=== PATIENT | female | born 1945 | race Caucasian/White ===

== ENCOUNTER 2016-04-23 13:27 | Emergency (ER) | payer MEDICARE ==
[~2016-04-23] VITALS: Ht 157.5 cm; Wt 63.0 kg
[~2016-04-23 13:27] MED LIST: CIPR500T4 PO; DILA8TAB4 PO; ESZO2 PO; NITR0.4S SL; OMEP20TA39 PO; PRED5 PO; ZOFR4TAB3 SL
[2016-04-23 13:42] VITALS: BP 156/96; PULSE 81; RESP 16; TEMP 97.9; O2SAT 98
[2016-04-23] MEDS ORDERED: ALPR0.25 PO (14:20)
[2016-04-23] MEDS ORDERED: HYDR4TAB PO (14:21)
[2016-04-23] MEDS ORDERED: NITR0.4S SL (14:21)
[2016-04-23] MEDS ORDERED: ZOFR4TAB PO (14:22)
[2016-04-23] MEDS ORDERED: PRED1 PO (14:22)
[2016-04-23] MEDS ORDERED: PRED5TAB PO (14:23)
[2016-04-23] MEDS ORDERED: PRIL20CA9 PO (14:23)
[2016-04-23] MEDS ORDERED: SODIUM CHLOR 0.9% 1000 ML INJ 1,000 ML IV SCH (14:28)
[2016-04-23] MEDS ORDERED: HYDROmorphone HCL PF 2 MG/ML VIAL IVS ONE (14:30)
[2016-04-23] MEDS ORDERED: SODIUM CHLORIDE 0.9% FLUSH 5 ML FLUSH IVF PRN (14:30)
[2016-04-23] MEDS ORDERED: ONDANSETRON HCL 4 MG/2 ML VIAL IVP ONE (14:30)
--- NOTE | 2016-04-23 14:42 | PD ---
HPI Chief Complaint: GI Complaint Time Seen by Provider: 14:20 Travel History International Travel<30 days: No Contact w/Intl Traveler<30days: No Traveled to known affect area: No History of Present Illness HPI This is a 70-year-old female who presents to the emergency department with left upper quadrant abdominal pain, present for 6 days, constant, severe, associated with nausea. She denies any associated fevers or chills. She denies any diarrhea. She says she's had pancreatitis in the past and this feels similar. She says she's been very stressed out lately because her cat was in the hospital with pancreatitis and yesterday. PFSH Past Medical History Arthritis: Yes (OSTEOARTHRITIS) Anxiety: Yes Cardiac Catheterization: No Diminished Hearing: No Diverticulitis: Yes Fibromyalgia: Yes Gastrointestinal Disorders: Yes (COLON MOTILITY DISEASE; EROSION ESOPHAGUS) GERD: Yes Genitourinary: Yes (NEPHROLITHIASIS) Hiatal Hernia: Yes Hypertension: No Insomnia: Yes Kidney Stones: Yes (RIGHT SIDE) Neurologic: Yes (POLYMYALGIA RHEUMATICA) Psychiatric: Yes Immunizations Current: Yes Tetanus Vaccination: Unknown Influenza Vaccination: Yes Menopausal: Yes Tubal Ligation: Yes Past Surgical History Abdominal Surgery: Yes (HERNIA REPAIR) Appendectomy: Yes Cardiac Surgery: No Coronary Artery Bypass Graft: No Gynecologic Surgery: Yes Hysterectomy: Yes Neurologic Surgery: Yes (T11/12 NERVE L1 NERVE) Oral Surgery: Yes (TMJ) Tonsillectomy: Yes Tympanostomy Tube: Yes Other Surgery: Yes Social History Alcohol Use: No Tobacco Use: No ( A TEEN) Substance Use: No Allergies-Medications (Allergen,Severity, Reaction): Coded Allergies: Ambien (Verified Allergy, Severe, Hallucinations, 04/23/16) Contrast Media (Verified Allergy, Severe, SWELLS UP AND RASH, 04/23/16) Fentanyl (Verified Allergy, Severe, Hypotension, 04/23/16) Iodine (Verified Allergy, Severe, Rash, 04/23/16) Macrodantin (Verified Allergy, Severe, Hives, 04/23/16) Rocephin (Verified Allergy, Severe, Rash, 04/23/16) Savella (Verified Allergy, Severe, Rash, 04/23/16) *MDRO Multi-Drug Resistant Organism (Verified Adverse Reaction, Unknown, ) ESBL+E.Coli urine 04/2015 Reported Meds & Prescriptions Reported Meds & Active Scripts Active Reported Prilosec (Omeprazole) 20 Mg Cap 20 Mg PO DAILY Prednisone 5 Mg Tab 5 Mg PO DAILY Prednisone 1 Mg Tab 1 Mg PO DAILY Zofran (Ondansetron HCl) 4 Mg Tab 4 Mg PO Q12HR PRN Nitrostat SL (Nitroglycerin) 0.4 Mg Subl 0.4 Mg SL DIRECTED PRN 1 tablet under the tongue as needed for chest pain. Repeat every 5 minutes for a total of 3 DOSES or call 911 if NO relief. Hydromorphone (Hydromorphone HCl) 4 Mg Tab 4 Mg PO Q6H PRN Alprazolam 0.25 Mg Tab 0.25 Mg PO Q4H PRN Review of Systems Except as stated in HPI: all other systems reviewed are Neg Physical Exam Narrative GENERAL:Well appearing, no acute distress SKIN: Warm and dry. HEAD: Atraumatic. Normocephalic. EYES: Pupils equal and round. No injection or drainage. ENT: Moist mucous membranes NECK: Trachea midline. CARDIOVASCULAR: Regular rate and rhythm. No murmur appreciated. RESPIRATORY: Clear to auscultation. Breath sounds equal bilaterally. GASTROINTESTINAL: Abdomen soft, tender to palpation in the left upper quadrant with no rebound or guarding. MUSCULOSKELETAL: No obvious deformities. NEUROLOGICAL: Awake and alert. No obvious cranial nerve deficits. Moving all extremities. PSYCHIATRIC: Appropriate mood and affect; insight and judgment normal. Data Data Last Documented VS Vital Signs Date Time Temp Pulse Resp B/P Pulse Ox O2 Delivery O2 Flow Rate FiO2 04/23/16 14:14 16 04/23/16 13:42 97.9 81 156/96 98 Orders Complete Blood Count With Diff (04/23/16 14:28) Comprehensive Metabolic Panel (04/23/16 14:28) Lipase (04/23/16 14:28) Urinalysis - C+S If Indicated (04/23/16 14:28) Iv Access Insert/Monitor (04/23/16 14:28) Ecg Monitoring (04/23/16 14:28) Oximetry (04/23/16 14:28) Hydromorphone Pf Inj (Dilaudid Pf Inj) (04/23/16 14:30) Ondansetron Inj (Zofran Inj) (04/23/16 14:30) Sodium Chlor 0.9% 1000 Ml Inj (Ns 1000 M (04/23/16 14:28) Sodium Chloride 0.9% Flush (Ns Flush) (04/23/16 14:30) Urine Culture (04/23/16 14:40) Labs Laboratory Tests Test 04/23/16 04/23/16 14:40 15:05 Urine Collection Type CLEAN CATCH Urine Color YELLOW Urine Turbidity SLIGHTY CLOUDY Urine pH 6.5 Urine Specific [place] 1.015 Urine Protein NEG mg/dL Urine Glucose (UA) NEG mg/dL Urine Ketones NEG mg/dL Urine Occult Blood SMALL Urine Nitrite NEG Urine Bilirubin NEG Urine Leukocyte Esterase TRACE Urine RBC 0-3 /hpf Urine WBC 3-5 /hpf Urine Bacteria MANY /hpf Microscopic Urinalysis Comment CULTURE INDICATED White Blood Count 7.6 TH/MM3 Red Blood Count 4.75 MIL/MM3 Hemoglobin 13.3 GM/DL Hematocrit 40.0 % Mean Corpuscular Volume 84.2 FL Mean Corpuscular Hemoglobin 28.0 PG Mean Corpuscular Hemoglobin 33.3 % Concent Red Cell Distribution Width 14.1 % Platelet Count 268 TH/MM3 Mean Platelet Volume 7.5 FL Neutrophils (%) (Auto) 73.8 % Lymphocytes (%) (Auto) 19.3 % Monocytes (%) (Auto) 4.9 % Eosinophils (%) (Auto) 1.4 % Basophils (%) (Auto) 0.6 % Neutrophils # (Auto) 5.6 TH/MM3 Lymphocytes # (Auto) 1.5 TH/MM3 Monocytes # (Auto) 0.4 TH/MM3 Eosinophils # (Auto) 0.1 TH/MM3 Basophils # (Auto) 0.0 TH/MM3 CBC Comment DIFF FINAL Differential Comment Sodium Level 145 MEQ/L Potassium Level 3.6 MEQ/L Chloride Level 108 MEQ/L Carbon Dioxide Level 30.5 MEQ/L Anion Gap 7 MEQ/L Blood Urea Nitrogen 15 MG/DL Creatinine 0.81 MG/DL Estimat Glomerular Filtration 70 ML/MIN Rate Random Glucose 83 MG/DL Calcium Level 8.4 MG/DL Total Bilirubin 0.5 MG/DL Aspartate Amino Transf 15 U/L (AST/SGOT) Alanine Aminotransferase 30 U/L (ALT/SGPT) Alkaline Phosphatase 74 U/L Total Protein 6.9 GM/DL Albumin 3.5 GM/DL Lipase 103 U/L [facility] Medical Decision Making Medical Screen Exam Complete: Yes Emergency Medical Condition: Yes Interpretation(s) No leukocytosis Electrolytes are reassuring Lipase is normal Urinalysis: Many bacteria Differential Diagnosis Pancreatitis, cholelithiasis, cholecystitis, peptic ulcer disease, gastritis, urinary tract infection, stress Narrative Course This is a 70-year-old female who presents to the emergency department with left upper quadrant abdominal pain. She says she's had pancreatitis in the past. Much of the conversation I had with her aunt deals with the fact that her cat was in the intensive care unit over the past several days with pancreatitis and ultimately ended up dying. I think she is very depressed and she is grieving her cat. She was placed on a monitor and an IV was established. Labs are obtained which were all reassuring. She does have some bacteria in her urine which may suggest urinary tract infection. She is very well-appearing. I don' t think any imaging is warranted. She feels much better after pain control. I think she can be discharged home. Diagnosis Primary Impression: Adjustment reaction Qualified Code: F43.21 - Adjustment disorder with depressed mood Additional Impression: Urinary tract infection Qualified Code: N30.00 - Acute cystitis without hematuria Patient Instructions: General Instructions Additional Instructions: If you develop severe or worsening abdominal pain, fever>100.4, persistent vomiting or inability to eat or drink return to the emergency department immediately. Follow up with your primary care physician in 1-2 days for a check-up. Med/Other Pt SpecificInfo: Prescription(s) given, No Change to Meds Scripts Sulfamethoxazole-Trimethoprim (Bactrim DS)800-160 Mg Tab1 Tab PO BID #6 TAB Prov:Daksha Rivera MD 04/23/16 Disposition: DISCHARGE HOME Condition: Stable Daksha Rivera MD Apr 23, 2016 14:42
[2016-04-23 14:48] LABS: BLOOD, URINE SMALL (NEG); GLUCOSE,URINE NEG (NEG); KETONE, URINE NEG (NEG); NITRITE,URINE NEG (NEG); PH, URINE 6.5 (5.0-8.5)
[2016-04-23 14:57] LABS: METHOD OF COLLECTION CLEAN CATCH; URINE COLOR YELLOW (YELLW/STRAW)
[2016-04-23 14:58] LABS: BACTERIA, URINE MANY /hpf; COMMENT (UR) CULTURE INDICATED; CULTURE IF INDICATED CULTURE INDICATED; RBC, URINE 0-3 /hpf (0-3)
[2016-04-23 15:00] VITALS: BP 129/69; PULSE 80; RESP 16; O2SAT 100
[2016-04-23 15:12] LABS: AUTOMATED NEUTROPHIL # 5.6 TH/MM3 (1.8-7.7); BASOPHIL % 0.6 % (0.0-2.0); EOSINOPHIL # 0.1 TH/MM3 (0-0.4); EOSINOPHIL % 1.4 % (0.0-4.0); HEMO FLAGS DIFF FINAL; LYMPH % 19.3 % (9.0-44.0); LYMPHOCYTE # 1.5 TH/MM3 (1.0-4.8); MEAN CELL VOLUME 84.2 FL (80.0-100.0); MEAN CORPUSCULAR HGB CONC 33.3 % (32.0-36.0); MONO % 4.9 % (0.0-8.0); NEUT % 73.8 % (16.0-70.0); PLATELET COUNT 268 TH/MM3 (150-450); RED BLOOD COUNT 4.75 MIL/MM3 (4.00-5.30); RED CELL DISTRIBUTION WIDTH 14.1 % (11.6-17.2); WHITE BLOOD COUNT 7.6 TH/MM3 (4.0-11.0)
[2016-04-23 15:19] LABS: CHLORIDE 108 MEQ/L (98-107); POTASSIUM 3.6 MEQ/L (3.5-5.1); SODIUM (NA) 145 MEQ/L (136-145)
[2016-04-23 15:23] LABS: ANION GAP 7 MEQ/L (5-15); BICARBONATE 30.5 MEQ/L (21.0-32.0); BLOOD UREA NITROGEN 15 MG/DL (7-18)
[2016-04-23 15:25] LABS: ALT (GPT) 30 U/L (10-53); AST (GOT) 15 U/L (15-37); GLOMERULAR FILTRATION RATE 70 ML/MIN (>89)
[2016-04-23 15:27] LABS: TOTAL BILIRUBIN ADULT 0.5 MG/DL (0.2-1.0)
[2016-04-23 15:28] LABS: ALKALINE PHOSPHATASE 74 U/L (45-117)
[2016-04-23] MEDS ORDERED: BACT800T5 PO (15:34)
[2016-04-23 16:13] VITALS: BP 129/68; PULSE 80; O2SAT 100
== END 2016-04-23 17:06 | disposition home or self-care (01) ==
LOC: PHED 13:27
DX: F43.21 Adjustment disorder with depressed mood (principal); N39.0 Urinary tract infection, site not specified; B96.89 Other specified bacterial agents as the cause of diseases classified elsewhere; R11.0 Nausea
CPT/HCPCS: 80053; 81001; 83690; 85025; 87077; 87086; 87186; 96361; 96374; 96375; 99284; J1170; J2405; J7030

== ENCOUNTER 2017-12-16 16:51 | Observation (INO) ==
[2017-12-16] MEDS ORDERED: Morphine Sulfate Inj 2 MG/ML Vial IV.PUSH ONE ×2 (17:20→18:14)
--- NOTE | 2017-12-16 17:27 | ED ---
HPI General Chief complaint: Nausea/Vomiting/Diarrhea Stated complaint: n/v/d Time Seen by Provider: 12/16/17 17:06 History of Present Illness HPI narrative: Patient is 72-year-old female with h/o HTN, Diverticulitis, presented for severe epigastric, left upper quadrant abdominal pain radiating to left lower quadrant for 3 days. Patient was evaluated by here primary physician on Thursday, recommended to come to emergency room for relation of diverticulitis. Patient complain about nausea, vomiting and watery diarrhea a few times for the last 2-3 days. Patient is unable to tolerate p.o., feels dehydrated. Denies fever, chest pain. Related Data Home Medications Medication Instructions Recorded Confirmed Bacillus coagulans [Digestive 2 cap PO DAILY 11/11/17 12/16/17 Advantage] hydromorphone 4 mg PO Q6H PRN 11/11/17 12/16/17 linaclotide [Linzess] 290 mcg PO DAILY 11/11/17 12/16/17 ondansetron 8 mg PO BID PRN 11/11/17 12/16/17 pantoprazole 40 mg PO DAILY 11/11/17 12/16/17 prednisone 7 mg PO DAILY 11/11/17 12/16/17 lisinopril 5 mg PO DAILY 12/16/17 12/16/17 nitroglycerin 0.4 mg SUBLINGUAL Q5-15M PRN 12/16/17 12/16/17 Allergies Allergy/AdvReac Type Severity Reaction Status Date / Time ceftriaxone Allergy Severe Rash Verified 12/16/17 17:01 diatrizoate meglumine Allergy Severe SWELLS UP Verified 12/16/17 17:01 AND RASH fentanyl Allergy Severe Hypotension Verified 12/16/17 17:01 gadobenic acid Allergy Severe SWELLS UP Verified 12/16/17 17:01 AND RASH gadodiamide Allergy Severe SWELLS UP Verified 12/16/17 17:01 AND RASH gadoteridol Allergy Severe SWELLS UP Verified 12/16/17 17:01 AND RASH iodine Allergy Severe Rash Verified 12/16/17 17:01 iodixanol Allergy Severe SWELLS UP Verified 12/16/17 17:01 AND RASH iohexol Allergy Severe SWELLS UP Verified 12/16/17 17:01 AND RASH milnacipran Allergy Severe Rash Verified 12/16/17 17:01 nitrofurantoin Allergy Severe Hives Verified 12/16/17 17:01 potassium iodide Allergy Severe Rash Verified 12/16/17 17:01 povidone-iodine Allergy Severe Rash Verified 12/16/17 17:01 sodium iodide Allergy Severe Rash Verified 12/16/17 17:01 sodium iodide Allergy Severe Rash Verified 12/16/17 17:01 zolpidem Allergy Severe Hallucinati Verified 12/16/17 17:01 ons *MDRO Multi-Drug Resistant AdvReac Unknown unknown Uncoded 11/13/17 11:15 Organism Review of Systems ROS: all other systems reviewed are negative Gastrointestinal Reports abdominal pain PMFSH Family History Family History Other Family history non-contributory Social History Social History Substance History: No History of Abuse Second Hand Smoke Exposure: No Smoking Status: Never smoker How Often Do You Have a Drink Containing Alcohol: Never Recent Travel in [facility] within the Last 8 Weeks: No Recent Out of Country Travel within the Last 8 Weeks: No Exam Narrative Exam Narrative: GENERAL: 72-year-old female in pain distress. SKIN: Focused skin assessment warm/dry. HEAD: Atraumatic. Normocephalic. EYES: Pupils equal and round. No scleral icterus. No injection or drainage. ENT: No nasal bleeding or discharge. Mucous membranes pink and moist. NECK: Trachea midline. No JVD. CARDIOVASCULAR: Regular rate and rhythm. No murmur appreciated. RESPIRATORY: No accessory muscle use. Clear to auscultation. Breath sounds equal bilaterally. GASTROINTESTINAL: Abdomen soft, significantly tender in left upper quadrant and left lower quadrant abdomen, nondistended. Hepatic and splenic margins not palpable. MUSCULOSKELETAL: No obvious deformities. No clubbing. No cyanosis. No edema. NEUROLOGICAL: Awake and alert. No obvious cranial nerve deficits. Motor grossly within normal limits. Normal speech. PSYCHIATRIC: Appropriate mood and affect; insight and judgment normal. Course Initial Documented Vital Signs Temperature 98.7 F 12/16/17 17:01 Pulse Rate 84 12/16/17 17:01 Respiratory Rate 20 12/16/17 17:01 Blood Pressure 179/84 H 12/16/17 17:01 Pulse Oximetry 99 12/16/17 17:01 Last Documented Vital Signs Temperature 97 F L 12/18/17 00:00 Pulse Rate 87 12/18/17 00:00 Respiratory Rate 20 12/18/17 00:00 Blood Pressure 119/80 12/18/17 00:00 Pulse Oximetry 98 12/18/17 00:00 Medical Decision Making MDM Narrative Medical decision making narrative: To rule out small bowel obstruction, diverticulitis, CAT scan of the abdomen ordered, blood work and urine analysis. IV fluids, nausea medications, pain medications given. 1930: Patient is mildly dehydrated, creatinine was 1.6, potassium is 3.3. Patient feels better in the emergency room, CAT scan did not show any acute pathology. Patient still feel nauseous, unable to tolerate p.o., refused potassium tablet. She is placed on observation. Case was accepted by Dr. Gomez. Medical Screen Exam Complete: Yes Emergency Medical Condition: Yes Differential Diagnosis Differential Diagnosis: Small bowel obstruction versus diverticulitis versus OR. Lab Data Result diagrams: 12/17/17 07:50 12/17/17 15:05 Lab Results 12/16/17 12/16/17 12/16/17 Range/Units 17:33 17:33 18:45 CBC w Diff Auto diff final WBC 11.5 H (4.0-11.0) th/mm3 RBC 4.71 (4.00-5.30) mil/mm3 Hgb 13.8 (11.6-15.3) gm/dL Hct 41.3 (35.0-46.0) % MCV 87.5 (80.0-100.0) fL MCH 29.3 (27.0-34.0) pg MCHC 33.5 (32.0-36.0) % RDW 13.5 (11.6-17.2) % Plt Count 267 (150-450) th/mm3 MPV 8.8 (7.0-11.0) fL Neut % (Auto) 74.6 H (16.0-70.0) % Lymph % (Auto) 14.3 (9.0-44.0) % [place] % (Auto) 5.6 (0.0-8.0) % Eos % (Auto) 2.2 (0.0-4.0) % Baso % (Auto) 3.3 H (0.0-2.0) % Neut # (Auto) 8.5 H (1.8-7.7) th/mm3 Lymph # (Auto) 1.7 (1.0-4.8) th/mm3 [place] # (Auto) 0.6 (0.0-0.9) th/mm3 Eos # (Auto) 0.3 (0.0-0.4) th/mm3 Baso # (Auto) 0.4 H (0.0-0.2) th/mm3 WBC Differential . Differential Comment . Sodium 142 (136-145) meq/L Potassium 3.3 L (3.5-5.1) meq/L Chloride 107 (98-107) meq/L Carbon Dioxide 22.3 (21.0-32.0) meq/L Anion Gap 13 (5-15) meq/L BUN 16 (7-18) mg/dL Creatinine 1.60 H (0.50-1.00) mg/dL Estimated GFR 32 L (>89) mL/min Random Glucose 91 (74-106) mg/dL Calcium 8.6 (8.5-10.1) mg/dL Magnesium (1.5-2.5) mg/dL Total Bilirubin 0.8 (0.2-1.0) mg/dL AST 26 (15-37) U/L ALT 20 (10-53) U/L Alkaline Phosphatase 57 (45-117) U/L Troponin I Less than 0.02 L (0.02-0.05) ng/mL Total Protein 7.2 (6.4-8.2) g/dL Albumin 3.9 (3.4-5.0) g/dL Lipase 73 (73-393) U/L Urine Color Yellow (Yellw/Straw) Urine Clarity Clear (Clear) Urine pH 6.0 (5.0-8.5) Ur Specific [place] 1.015 (1.002-1.035) Urine Protein Negative (Neg-Trace) mg/dL Urine Glucose (UA) Negative (Negative) mg/dL Urine Ketones 15 H (Negative) mg/dL Urine Occult Blood Trace (Negative) Urine Nitrate Negative (Negative) Urine Bilirubin Negative (Negative) Urine Urobilinogen 0.2 (Less than 2) mg/dL Ur Leukocyte Esterase Negative (Negative) Urine RBC 0-3 (0-3) /hpf Urine WBC 0-5 (0-5) /hpf Ur Squamous Epith Cells 0-5 (0-5) /hpf Amorphous Sediment Rare H (None) /hpf Urine Bacteria Rare H (None) /hpf Urine Mucus Rare H (Occasional) /lpf Micro UA Comment Culture not ind Ur Microscopic Review Microscopic reviewed Stl C.difficile DNA Amp (Negative) St C. diff Tox Epid 027 (Negative) 12/17/17 12/17/17 12/17/17 Range/Units 06:00 07:50 07:50 CBC w Diff Auto diff final WBC 6.7 (4.0-11.0) th/mm3 RBC 4.10 (4.00-5.30) mil/mm3 Hgb 12.3 (11.6-15.3) gm/dL Hct 35.5 (35.0-46.0) % MCV 86.7 (80.0-100.0) fL MCH 29.9 (27.0-34.0) pg MCHC 34.5 (32.0-36.0) % RDW 14.1 (11.6-17.2) % Plt Count 259 (150-450) th/mm3 MPV 8.3 (7.0-11.0) fL Neut % (Auto) 72.7 H (16.0-70.0) % Lymph % (Auto) 15.8 (9.0-44.0) % [place] % (Auto) 5.9 (0.0-8.0) % Eos % (Auto) 4.9 H (0.0-4.0) % Baso % (Auto) 0.7 (0.0-2.0) % Neut # (Auto) 4.9 (1.8-7.7) th/mm3 Lymph # (Auto) 1.1 (1.0-4.8) th/mm3 [place] # (Auto) 0.4 (0.0-0.9) th/mm3 Eos # (Auto) 0.3 (0.0-0.4) th/mm3 Baso # (Auto) 0.0 (0.0-0.2) th/mm3 WBC Differential . Differential Comment . Sodium 146 H (136-145) meq/L Potassium 2.8 L* (3.5-5.1) meq/L Chloride 110 H (98-107) meq/L Carbon Dioxide 27.7 (21.0-32.0) meq/L Anion Gap 8 (5-15) meq/L BUN 11 (7-18) mg/dL Creatinine 1.00 (0.50-1.00) mg/dL Estimated GFR 54 L (>89) mL/min Random Glucose 82 (74-106) mg/dL Calcium 7.6 L D (8.5-10.1) mg/dL Magnesium (1.5-2.5) mg/dL Total Bilirubin (0.2-1.0) mg/dL AST (15-37) U/L ALT (10-53) U/L Alkaline Phosphatase (45-117) U/L Troponin I (0.02-0.05) ng/mL Total Protein (6.4-8.2) g/dL Albumin (3.4-5.0) g/dL Lipase (73-393) U/L Urine Color (Yellw/Straw) Urine Clarity (Clear) Urine pH (5.0-8.5) Ur Specific [place] (1.002-1.035) Urine Protein (Neg-Trace) mg/dL Urine Glucose (UA) (Negative) mg/dL Urine Ketones (Negative) mg/dL Urine Occult Blood (Negative) Urine Nitrate (Negative) Urine Bilirubin (Negative) Urine Urobilinogen (Less than 2) mg/dL Ur Leukocyte Esterase (Negative) Urine RBC (0-3) /hpf Urine WBC (0-5) /hpf Ur Squamous Epith Cells (0-5) /hpf Amorphous Sediment (None) /hpf Urine Bacteria (None) /hpf Urine Mucus (Occasional) /lpf Micro UA Comment Ur Microscopic Review Stl C.difficile DNA Amp Positive H (Negative) St C. diff Tox Epid 027 Negative (Negative) 12/17/17 12/17/17 Range/Units 07:50 15:05 CBC w Diff WBC (4.0-11.0) th/mm3 RBC (4.00-5.30) mil/mm3 Hgb (11.6-15.3) gm/dL Hct (35.0-46.0) % MCV (80.0-100.0) fL MCH (27.0-34.0) pg MCHC (32.0-36.0) % RDW (11.6-17.2) % Plt Count (150-450) th/mm3 MPV (7.0-11.0) fL Neut % (Auto) (16.0-70.0) % Lymph % (Auto) (9.0-44.0) % [place] % (Auto) (0.0-8.0) % Eos % (Auto) (0.0-4.0) % Baso % (Auto) (0.0-2.0) % Neut # (Auto) (1.8-7.7) th/mm3 Lymph # (Auto) (1.0-4.8) th/mm3 [place] # (Auto) (0.0-0.9) th/mm3 Eos # (Auto) (0.0-0.4) th/mm3 Baso # (Auto) (0.0-0.2) th/mm3 WBC Differential Differential Comment Sodium (136-145) meq/L Potassium 2.8 L* (3.5-5.1) meq/L Chloride (98-107) meq/L Carbon Dioxide (21.0-32.0) meq/L Anion Gap (5-15) meq/L BUN (7-18) mg/dL Creatinine (0.50-1.00) mg/dL Estimated GFR (>89) mL/min Random Glucose (74-106) mg/dL Calcium (8.5-10.1) mg/dL Magnesium 1.8 (1.5-2.5) mg/dL Total Bilirubin (0.2-1.0) mg/dL AST (15-37) U/L ALT (10-53) U/L Alkaline Phosphatase (45-117) U/L Troponin I (0.02-0.05) ng/mL Total Protein (6.4-8.2) g/dL Albumin (3.4-5.0) g/dL Lipase (73-393) U/L Urine Color (Yellw/Straw) Urine Clarity (Clear) Urine pH (5.0-8.5) Ur Specific [place] (1.002-1.035) Urine Protein (Neg-Trace) mg/dL Urine Glucose (UA) (Negative) mg/dL Urine Ketones (Negative) mg/dL Urine Occult Blood (Negative) Urine Nitrate (Negative) Urine Bilirubin (Negative) Urine Urobilinogen (Less than 2) mg/dL Ur Leukocyte Esterase (Negative) Urine RBC (0-3) /hpf Urine WBC (0-5) /hpf Ur Squamous Epith Cells (0-5) /hpf Amorphous Sediment (None) /hpf Urine Bacteria (None) /hpf Urine Mucus (Occasional) /lpf Micro UA Comment Ur Microscopic Review Stl C.difficile DNA Amp (Negative) St C. diff Tox Epid 027 (Negative) Imaging Data Radiologist's impression: Abdomen/Pelvis CT 12/16/17 17:17 CONCLUSION: 1. [id number] diverticulosis with no inflammatory change or evidence of obstruction. 2. Bilateral nonobstructing renal calculi with multiple left parapelvic cysts again noted. 3. Probable small gallstones with no gallbladder wall thickening or inflammatory change. Discharge Plan Discharge Disposition Patient Disposition: 30 Still Patient Discharge Condition Condition: Fair Discharge Details Diagnosis: Renal insufficiency, Nausea & vomiting, Gastroenteritis, Abdominal pain Physicians Team ED Provider: Nolan Blanco Primary Care Provider: Corky Mendiola Attending Provider: Rosibel Gomez Status ED Status: Left Department Discharge Information Discharge Date/Time: 12/16/17 20:40
[2017-12-16] MEDS ORDERED: Sod Chloride 0.9% Inj 1,000 ML IV.SIG SCH (17:30)
[2017-12-16 17:42] LABS: Baso # (Auto) 0.4 th/mm3 (0.0-0.2); Baso % (Auto) 3.3 % (0.0-2.0); Eos # (Auto) 0.3 th/mm3 (0.0-0.4); Eos % (Auto) 2.2 % (0.0-4.0); Hematocrit 41.3 % (35.0-46.0); Hemoglobin 13.8 gm/dL (11.6-15.3); Lymph # (Auto) 1.7 th/mm3 (1.0-4.8); Lymph % (Auto) 14.3 % (9.0-44.0); Mean Corpuscular HGB Conc 33.5 % (32.0-36.0); Mean Corpuscular Hemoglobin 29.3 pg (27.0-34.0); Mean Corpuscular Volume 87.5 fL (80.0-100.0); Mean Platelet Volume 8.8 fL (7.0-11.0); Mono # (Auto) 0.6 th/mm3 (0.0-0.9); Mono % (Auto) 5.6 % (0.0-8.0); Neut # (Auto) 8.5 th/mm3 (1.8-7.7); Neut % (Auto) 74.6 % (16.0-70.0); Platelet Count 267 th/mm3 (150-450); Red Blood Count 4.71 mil/mm3 (4.00-5.30); Red Cell Distribution Width 13.5 % (11.6-17.2); White Blood Count 11.5 th/mm3 (4.0-11.0)
[2017-12-16 17:50] LABS: Chloride 107 meq/L (98-107); Sodium 142 meq/L (136-145)
[2017-12-16 17:53] LABS: Albumin 3.9 g/dL (3.4-5.0); Calcium 8.6 mg/dL (8.5-10.1); Carbon Dioxide 22.3 meq/L (21.0-32.0); Glucose,Random 91 mg/dL (74-106); Lipase 73 U/L (73-393)
[2017-12-16 17:54] LABS: Blood Urea Nitrogen 16 mg/dL (7-18)
[2017-12-16 17:56] LABS: Alanine Aminotransferase 20 U/L (10-53); Aspartate Aminotransferase 26 U/L (15-37); Glomerular Filtration Rate 32 mL/min (>89)
[2017-12-16 17:58] LABS: Total Protein 7.2 g/dL (6.4-8.2)
[2017-12-16 17:59] LABS: Alkaline Phosphatase 57 U/L (45-117)
[2017-12-16 18:01] LABS: Anion Gap 13 meq/L (5-15); Potassium 3.3 meq/L (3.5-5.1)
--- NOTE | 2017-12-16 18:13 | CT ---
EXAM DATE: 12/16/2017 6:01 PM EST AGE/SEX: 72 years / Female INDICATIONS: Abdominal pain. Nausea, vomiting and diarrhea. CLINICAL DATA: This is the patient's initial encounter. Patient reports that signs and symptoms have been present for 1 day and indicates a pain score of 10/10. MEDICAL/SURGICAL HISTORY: Gastroesophageal reflux disease. Hypertension. Ulcers. Appendectomy . right rib removed. (12) RADIATION DOSE: 10.99 CTDI (mGy) COMPARISON: POI, CT ABDOMEN AND PELVIS W/O CONTRAST, 06/16/2017. . TECHNIQUE: Multiple contiguous axial images were obtained through the abdomen. Images were obtained using multiple row detector helical technique. Using automated exposure control and adjustment of the mA and/or kV according to patient size, radiation dose was kept as low as reasonably achievable to o btain optimal diagnostic quality images. DICOM format image data is available electronically for rev iew and comparison. FINDINGS: Lower Lungs: The visualized lower lungs are clear. Liver: The liver has a homogeneous density without space-occupying lesion. There is no dilation of th e biliary tree. The gallbladder is normal in size and shape with several small subtle high density st ructures which may represent small gallstones. There is no wall thickening or inflammatory change. Spleen: Homogeneous density without enlargement. Pancreas: Unremarkable without mass or calcification. Kidneys: Normal in size and shape. No evidence of a solid mass or hydronephrosis. There are multiple left parapelvic cysts again noted. There are bilateral small nonobstructing renal calculi. There are 2 on the right measuring up to 3 mm in size and one on the left measuring 3 to 4 mm in size. There a re no ureteral calculi. Adrenal Glands: Unremarkable. Aorta: The aorta and proximal iliac vessels are grossly unremarkable without aneurysmal dilation. Bowel/Mesentery: No oral contrast was given limiting the sensitivity. There are multiple diverticuli greatest in the sigmoid colon with no focal wall thickening or inflammatory change. There is no free air or fluid. Abdominal Wall: Intact. Retroperitoneum: No evidence of adenopathy in the retrocrural, para-aortic, or deep pelvic regions. Bladder: Contours are smooth. Reproductive Organs: No abnormal masses or calcifications seen. Inguinal: The inguinal region is unremarkable without evidence of adenopathy. Bony Structures: Unremarkable. CONCLUSION: 1. [id number] diverticulosis with no inflammatory change or evidence of obstruction. 2. Bilateral nonobstructing renal calculi with multiple left parapelvic cysts again noted. 3. Probable small gallstones with no gallbladder wall thickening or inflammatory change. Electronically signed by: Aj Hall MD 12/16/2017 6:11 PM EST
[2017-12-16 19:00] LABS: Bilirubin,Urine Negative (Negative); Clarity,Urine Clear (Clear); Color,Urine Yellow (Yellw/Straw); Glucose,Urine (UA) Negative (Negative); Leukocyte Esterase,Urine Negative (Negative); Nitrite,Urine Negative (Negative); Specific Gravity,Urine 1.015 (1.002-1.035); Urobilinogen,Urine 0.2 mg/dL (Less than 2)
[2017-12-16 19:05] LABS: RBC,Urine 0-3 /hpf (0-3); Squamous Epithelial Cell,Urine 0-5 /hpf (0-5); WBC,Urine 0-5 /hpf (0-5)
[2017-12-16 19:06] LABS: Amorphous Sediment,Urine Rare /hpf; Bacteria,Urine Rare /hpf; Mucus,Urine Rare /lpf (Occasional)
[2017-12-16] MEDS ORDERED: Acetaminophen 325 MG Tablet PO PRN (19:21)
[2017-12-16] MEDS ORDERED: Bisacodyl 10 MG Supp RECTAL PRN (19:21)
[2017-12-16] MEDS ORDERED: HYDROmorphone PF Inj 0.5 MG/0.5 ML Syringe IV.PUSH PRN (21:29)
[2017-12-16] MEDS: HYDROmorphone PF Inj 1 MG/ML Ampul IV.PUSH PRN (22:10)
[2017-12-16] MEDS: Sod Chloride 0.9% Inj 1,000 ML IV.CONT SCH (22:11)
[2017-12-17] MEDS: HYDROmorphone PF Inj 1 MG/ML Ampul IV.PUSH PRN ×2 (04:21→09:32)
[2017-12-17] MEDS: Sod Chloride 0.9% Inj 1,000 ML IV.CONT SCH (05:56)
[2017-12-17 08:03] LABS: Baso % (Auto) 0.7 % (0.0-2.0); Eos # (Auto) 0.3 th/mm3 (0.0-0.4); Eos % (Auto) 4.9 % (0.0-4.0); Hematocrit 35.5 % (35.0-46.0); Hemoglobin 12.3 gm/dL (11.6-15.3); Lymph # (Auto) 1.1 th/mm3 (1.0-4.8); Lymph % (Auto) 15.8 % (9.0-44.0); Mean Corpuscular HGB Conc 34.5 % (32.0-36.0); Mean Corpuscular Hemoglobin 29.9 pg (27.0-34.0); Mean Corpuscular Volume 86.7 fL (80.0-100.0); Mean Platelet Volume 8.3 fL (7.0-11.0); Mono # (Auto) 0.4 th/mm3 (0.0-0.9); Mono % (Auto) 5.9 % (0.0-8.0); Neut # (Auto) 4.9 th/mm3 (1.8-7.7); Neut % (Auto) 72.7 % (16.0-70.0); Platelet Count 259 th/mm3 (150-450); Red Cell Distribution Width 14.1 % (11.6-17.2); White Blood Count 6.7 th/mm3 (4.0-11.0)
[2017-12-17 08:47] LABS: Calcium 7.6 mg/dL (8.5-10.1); Carbon Dioxide 27.7 meq/L (21.0-32.0)
--- NOTE | 2017-12-17 08:55 | P.HP ---
History of Present Illness Primary Care Physician: Corky Mendiola MD Chief Complaint: Abdominal pain, n/v and diarrhea History of Present Illness: This is a 72-year-old female patient with a known medical history of hypertension, diverticulitis and chronic back pain who presented to the ED with complaints of abdominal pain, nausea, vomiting and diarrhea times 3 days. Patient states that her abdominal pain started 3 days ago in her left upper quadrant and radiated to her left lower quadrant, she admits to poor appetite for the past few days with little to drink or eat without nausea and vomiting. She denies any recent fevers, chills, headache, cough, dysuria. She does state that she has been following with Dr. Leo 2, gastroenterology, for esophageal strictures and has underwent multiple esophageal dilations in the past. Her last esophageal dilation was 5 months ago. She states she has trouble swallowing foods and has to keep her diet to soft and bland foods. Patient also states she has had multiple UTIs in the past, followed previously with Dr. Bonilla, infectious disease and has had multiple IV antibiotic infusions. She has not seen Dr. Bonilla for many months now. At the present time of assessment patient states she feels much improved overnight, her nausea is more improved, she denies any vomiting overnight. Diarrhea slowed up. Electrolytes are still abnormal this morning, will continue replacement. Encourage p.o. intake. - Diagnosis (1) Renal insufficiency (2) Nausea & vomiting (3) Gastroenteritis (4) Abdominal pain Review of Systems All other systems reviewed negative except as stated in HPI PMFSH - History History Provided By: Patient - Medical History Medical History: Medical History (Last Reviewed 12/17/17 @ 11:11 by Lizzie Mitchell) Esophageal stricture Fibromyalgia GERD (gastroesophageal reflux disease) Gastric ulcer Hypertension Interstitial cystitis Osteoporosis Polymyalgia rheumatica Recurrent UTI - Surgical History Surgical History: Surgical History (Last Reviewed 12/17/17 @ 11:11 by Lizzie Mitchell) Hx of appendectomy Hx of tonsillectomy - Family History Family History: Family History (Last Updated 12/17/17 @ 11:11 by Lizzie Mitchell) Other Family history non-contributory - Social History I have reviewed the patient's Social History: Yes - Tobacco History Second Hand Smoke Exposure: No Smoking Status: Never smoker - Alcohol History How Often Do You Have a Drink Containing Alcohol: Never - Substance Use History Substance History: No History of Abuse - Travel History Recent Travel in the [place] Within the Last 8 Weeks: No Recent Travel Out of the Country Within the Last 8 Weeks: No - Immunization History Tetanus Immunization: >5 Years Medications and Allergies Active Medications: Active Medications Acetaminophen (Tylenol) 650 mg PO Q4H PRN PRN Reason: Headache, fever, pain 1-4 Al Hydroxide/Mg Hydroxide (Milk Of Magnesia Liq) 30 ml PO Q12H PRN PRN Reason: Mild Constipation Bisacodyl (Dulcolax Supp) 10 mg RECTAL DAILY PRN PRN Reason: SEVERE CONSITIPATION Hydromorphone HCl (Dilaudid Pf Inj) 0.5 mg IV.PUSH Q4H PRN PRN Reason: pain 1 to 10 Last Admin: 12/17/17 04:21 Dose: 0.5 mg Sodium Chloride (Ns Inj) 1,000 mls @ 100 mls/hr IV.CONT .Q10H MICKY Last Admin: 12/17/17 05:56 Dose: 100 mls/hr Lactulose (Lactulose Liq) 30 ml PO DAILY PRN PRN Reason: SEVERE CONSITIPATION Ondansetron HCl (Zofran Inj) 4 mg IV.PUSH Q6H PRN PRN Reason: NAUSEA OR VOMITING Last Admin: 12/17/17 05:53 Dose: 4 mg Sennosides (Senokot) 17.2 mg PO Q12H PRN PRN Reason: Moderate Constipation Sodium Chloride (Ns Flush) 2 ml IV.FLUSH PRN PRN PRN Reason: FLUSH AFTER USING IV ACCESS Allergies Allergy/AdvReac Type Severity Reaction Status Date / Time ceftriaxone Allergy Severe Rash Verified 12/16/17 17:01 diatrizoate meglumine Allergy Severe SWELLS UP Verified 12/16/17 17:01 AND RASH fentanyl Allergy Severe Hypotension Verified 12/16/17 17:01 gadobenic acid Allergy Severe SWELLS UP Verified 12/16/17 17:01 AND RASH gadodiamide Allergy Severe SWELLS UP Verified 12/16/17 17:01 AND RASH gadoteridol Allergy Severe SWELLS UP Verified 12/16/17 17:01 AND RASH iodine Allergy Severe Rash Verified 12/16/17 17:01 iodixanol Allergy Severe SWELLS UP Verified 12/16/17 17:01 AND RASH iohexol Allergy Severe SWELLS UP Verified 12/16/17 17:01 AND RASH milnacipran Allergy Severe Rash Verified 12/16/17 17:01 nitrofurantoin Allergy Severe Hives Verified 12/16/17 17:01 potassium iodide Allergy Severe Rash Verified 12/16/17 17:01 povidone-iodine Allergy Severe Rash Verified 12/16/17 17:01 sodium iodide Allergy Severe Rash Verified 12/16/17 17:01 sodium iodide Allergy Severe Rash Verified 12/16/17 17:01 zolpidem Allergy Severe Hallucinati Verified 12/16/17 17:01 ons *MDRO Multi-Drug Resistant AdvReac Unknown unknown Uncoded 11/13/17 11:15 Organism Home Medications Medication Instructions Recorded Confirmed Type Bacillus coagulans [Digestive 2 cap PO DAILY 11/11/17 12/16/17 History Advantage] hydromorphone 4 mg PO Q6H PRN 11/11/17 12/16/17 History linaclotide [Linzess] 290 mcg PO DAILY 11/11/17 12/16/17 History ondansetron 8 mg PO BID PRN 11/11/17 12/16/17 History pantoprazole 40 mg PO DAILY 11/11/17 12/16/17 History prednisone 7 mg PO DAILY 11/11/17 12/16/17 History lisinopril 5 mg PO DAILY 12/16/17 12/16/17 History nitroglycerin 0.4 mg SUBLINGUAL Q5-15M PRN 12/16/17 12/16/17 History Exam Vital signs: Vital Signs 12/16/17 17:01 12/16/17 17:35 12/16/17 18:05 Temperature 98.7 F Pulse Rate 84 75 Respiratory Rate 20 16 18 Blood Pressure 179/84 H 143/81 H Pulse Oximetry 99 95 12/16/17 18:56 12/16/17 20:28 12/16/17 20:45 Temperature 97.9 F Pulse Rate 77 77 81 Respiratory Rate 16 18 20 Blood Pressure 115/61 117/73 145/77 H Pulse Oximetry 97 100 98 12/16/17 22:33 12/17/17 00:00 12/17/17 04:00 Temperature 97.4 F L 97.9 F Pulse Rate 73 69 Respiratory Rate 20 20 20 Blood Pressure 133/67 139/68 Pulse Oximetry 99 98 12/17/17 05:09 12/17/17 05:13 Temperature 97.9 F Pulse Rate 69 Respiratory Rate 20 20 Blood Pressure 139/68 Pulse Oximetry 98 Intake & Output 12/16/17 12/17/17 12/17/17 18:59 06:59 18:59 Intake Total 1000 / 1000 1000 / 1000 Balance 1000 / 1000 1000 / 1000 Weight 60.4 kg 59.8 kg Intake: IV 1000 / 1000 1000 / 1000 NS Inj 1,000 ML @ 100 mls/hr IV 1000 / 1000 .CONT .Q10H MICKY Rx#:[id number] NS Inj 1,000 ML @ 1000 mls/hr 1000 / 1000 IV.SIG BOLUS MICKY Rx#:[id number] Oral 0 / 0 Other: # Voids 1 Weight On Admission 60.4 kg Narrative: GENERAL: Well-developed, well-nourished patient in [facility]. SKIN: Warm and dry. No rash. HEAD: Normocephalic. Atraumatic. EYES: Pupils equal and round. No scleral icterus. No injection or drainage. ENT: No nasal bleeding or discharge. Mucous membranes pink and moist. NECK: Supple. Trachea midline. CARDIOVASCULAR: Regular rate and rhythm. S1, S2 noted. No murmur appreciated. RESPIRATORY: No accessory muscle use. Clear to auscultation. Breath sounds equal bilaterally. GASTROINTESTINAL: Abdomen soft, non-tender, nondistended. Normoactive bowel sounds x4. No pain to palpation. MUSCULOSKELETAL: No obvious deformities. Extremities without clubbing, cyanosis , or edema. NEUROLOGICAL: Awake and alert. No obvious cranial nerve deficits. Motor grossly within normal limits. 5/5 muscle strength in bilateral upper and lower extremities. Normal speech. PSYCHIATRIC: Appropriate mood and affect; insight and judgment normal. Results - Labs CBC & Chem 7: 12/17/17 07:50 12/17/17 07:50 Labs: Laboratory Results - last 24 hr 12/16/17 12/16/17 12/16/17 17:33 17:33 18:45 CBC w Diff Auto diff final WBC 11.5 H RBC 4.71 Hgb 13.8 Hct 41.3 MCV 87.5 MCH 29.3 MCHC 33.5 RDW 13.5 Plt Count 267 MPV 8.8 Neut % (Auto) 74.6 H Lymph % (Auto) 14.3 [place] % (Auto) 5.6 Eos % (Auto) 2.2 Baso % (Auto) 3.3 H Neut # (Auto) 8.5 H Lymph # (Auto) 1.7 [place] # (Auto) 0.6 Eos # (Auto) 0.3 Baso # (Auto) 0.4 H WBC Differential . Differential Comment . Sodium 142 Potassium 3.3 L Chloride 107 Carbon Dioxide 22.3 Anion Gap 13 BUN 16 Creatinine 1.60 H Estimated GFR 32 L Random Glucose 91 Calcium 8.6 Total Bilirubin 0.8 AST 26 ALT 20 Alkaline Phosphatase 57 Troponin I Less than 0.02 L Total Protein 7.2 Albumin 3.9 Lipase 73 Urine Color Yellow Urine Clarity Clear Urine pH 6.0 Ur Specific [place] 1.015 Urine Protein Negative Urine Glucose (UA) Negative Urine Ketones 15 H Urine Occult Blood Trace Urine Nitrate Negative Urine Bilirubin Negative Urine Urobilinogen 0.2 Ur Leukocyte Esterase Negative Urine RBC 0-3 Urine WBC 0-5 Ur Squamous Epith Cells 0-5 Amorphous Sediment Rare H Urine Bacteria Rare H Urine Mucus Rare H Micro UA Comment Culture not ind Ur Microscopic Review Microscopic reviewed 12/17/17 07:50 CBC w Diff Auto diff final WBC 6.7 RBC 4.10 Hgb 12.3 Hct 35.5 MCV 86.7 MCH 29.9 MCHC 34.5 RDW 14.1 Plt Count 259 MPV 8.3 Neut % (Auto) 72.7 H Lymph % (Auto) 15.8 [place] % (Auto) 5.9 Eos % (Auto) 4.9 H Baso % (Auto) 0.7 Neut # (Auto) 4.9 Lymph # (Auto) 1.1 [place] # (Auto) 0.4 Eos # (Auto) 0.3 Baso # (Auto) 0.0 WBC Differential . Differential Comment . Sodium Potassium Chloride Carbon Dioxide Anion Gap BUN Creatinine Estimated GFR Random Glucose Calcium Total Bilirubin AST ALT Alkaline Phosphatase Troponin I Total Protein Albumin Lipase Urine Color Urine Clarity Urine pH Ur Specific [place] Urine Protein Urine Glucose (UA) Urine Ketones Urine Occult Blood Urine Nitrate Urine Bilirubin Urine Urobilinogen Ur Leukocyte Esterase Urine RBC Urine WBC Ur Squamous Epith Cells Amorphous Sediment Urine Bacteria Urine Mucus Micro UA Comment Ur Microscopic Review - Imaging Impressions Abdomen/Pelvis CT 12/16/17 17:17 CONCLUSION: 1. Xjic-[id number] diverticulosis with no inflammatory change or evidence of obstruction. 2. Bilateral nonobstructing renal calculi with multiple left parapelvic cysts again noted. 3. Probable small gallstones with no gallbladder wall thickening or inflammatory change. Caprini VTE Risk Assessment Caprini VTE Risk Assessment: Moderate/High Risk (score >= 2) Caprini Risk Assessment Model: Point Value = 1 Point Value = 2 Point Value = 3 Point Value = 5 Age 41-60 Minor surgery BMI > 25 kg/m2 Swollen legs Varicose veins or History of unexplained or recurrent spontaneous Oral contraceptives or hormone replacement Sepsis (< 1 month) Serious lung disease, including pneumonia (< 1 month) Abnormal pulmonary function Acute myocardial infarction Congestive heart failure (< 1 month) History of inflammatory bowel disease Medical patient at bed rest Age 61-74 Arthroscopic surgery Major open surgery (> 45 min) Laparoscopic surgery (> 45 min) Malignancy Confined to bed (> 72 hours) Immobilizing plaster cast Central venous access Age >= 75 History of VTE Family history of VTE Factor V Leiden Prothrombin [id number] Lupus anticoagulant Anticardiolipin antibodies Elevated serum homocysteine Heparin-induced thrombocytopenia Other congenital or acquired thrombophilia Stroke (< 1 month) Elective arthroplasty Hip, pelvis, or leg fracture Acute spinal cord injury (< 1 month) Prophylaxis Regimen: Total Risk Factor Score Risk Level Prophylaxis Regimen 0-1 Low Early ambulation 2 Moderate Order ONE of the following: *Sequential Compression Device (SCD) *Heparin 5000 units SQ BID 3-4 Higher Order ONE of the following medications: *Heparin 5000 units SQ TID *Enoxaparin/Lovenox 40 mg SQ daily (WT < 150 kg, CrCl > 30 mL/min) *Enoxaparin/Lovenox 30 mg SQ daily (WT < 150 kg, CrCl > 10-29 mL/min) *Enoxaparin/Lovenox 30 mg SQ BID (WT < 150 kg, CrCl > 30 mL/min) AND/OR *Sequential Compression Device (SCD) 5 or more Highest Order ONE of the following medications: *Heparin 5000 units SQ TID (Preferred with Epidurals) *Enoxaparin/Lovenox 40 mg SQ daily (WT < 150 kg, CrCl > 30 mL/min) *Enoxaparin/Lovenox 30 mg SQ daily (WT < 150 kg, CrCl > 10-29 mL/min) *Enoxaparin/Lovenox 30 mg SQ BID (WT < 150 kg, CrCl > 30 mL/min) AND *Sequential Compression Device (SCD) Assessment and Plan - Assessment (1) Renal insufficiency Code(s): N28.9 - Disorder of kidney and ureter, unspecified Status: Acute (2) Nausea & vomiting Code(s): R11.2 - Nausea with vomiting, unspecified Status: Acute (3) Gastroenteritis Code(s): K52.9 - Noninfective gastroenteritis and colitis, unspecified Status : Acute (4) Abdominal pain Code(s): R10.9 - Unspecified abdominal pain Status: Acute - Plan This is a 72-year-old female patient with Abdominal pain, nausea, vomiting and diarrhea times 3 days possible gastroenteritis -Abdominal/pelvis CT reviewed showing no acute abnormalities. -Symptoms have improved overnight. We will continue IV fluid. Encourage p.o. intake as tolerated. -Zofran as needed for nausea. -Pain control with Dilaudid IV as needed. Hypokalemia -Potassium 3.0 upon presentation, was replaced and this morning still low at 2.8. Replete as ordered. -Recheck potassium level this afternoon. Patient has some mild hyperkalemia from IV fluids, will decrease to half NS. Acute kidney injury suspect secondary to dehydration -Creatinine 1.6 on presentation, has improved to 1.0 today. Will continue IV fluids. -Monitor BMP. Leukocytosis, improved. -Patient presented with white blood cell 11,000, has improved today. Likely secondary to possible enteritis. Afebrile overnight. Continue to monitor. Chronic back pain: Will continue home prednisone. Patient is on Dilaudid at home. E- [employer] database reviewed and will continue home medications. DVT prophylaxis: SCDs. Ambulation. Discharge Planning: Await improvement of electrolytes.
[2017-12-17 09:00] LABS: Potassium 2.8 meq/L (3.5-5.1)
[2017-12-17] MEDS ORDERED: Mag Sulf 1 gm/100 ml Premix 100 ML IV.SIG ONE (09:04)
[2017-12-17] MEDS: Lisinopril 5 MG Tablet PO SCH (09:32)
[2017-12-17] MEDS ORDERED: Potassium Chlor 20 mEq Premix 20 MEQ/100 ML PIGGYBACK IV.SIG ONE (09:45)
[2017-12-17] MEDS ORDERED: KCL 20 mEq/NACL 0.45% Inj 1,000 ML IV.SIG SCH (10:00)
[2017-12-17] MEDS: KCL 20 mEq/NACL 0.45% Inj 1,000 ML IV.SIG SCH ×2 (10:07→21:28)
[2017-12-17] MEDS: Lactobacillus Acidophilus/L. Spores Tablet PO SCH (10:08)
[2017-12-17] MEDS: predniSONE 5 MG Tablet PO SCH (10:08)
[2017-12-17] MEDS: predniSONE 1 MG Tablet PO SCH (11:54)
[2017-12-17] MEDS: Potassium Chlor 20 mEq Premix 20 MEQ/100 ML PIGGYBACK IV.SIG SCH ×2 (17:05→21:28)
[2017-12-17] MEDS ORDERED: Potassium Chloride 25 MEQ Effervescent Tablet PO ONE (20:45)
[2017-12-18] MEDS: KCL 20 mEq/NACL 0.45% Inj 1,000 ML IV.SIG SCH ×2 (06:31→16:17)
[2017-12-18] MEDS: predniSONE 5 MG Tablet PO SCH (08:14)
[2017-12-18] MEDS: predniSONE 1 MG Tablet PO SCH (08:15)
[2017-12-18] MEDS: Lisinopril 5 MG Tablet PO SCH (08:15)
[2017-12-18] MEDS: Lactobacillus Acidophilus/L. Spores Tablet PO SCH (08:15)
--- NOTE | 2017-12-18 16:47 | P.PN ---
Subjective Interval history: Follow-up for nausea vomiting, diarrhea, electrolyte imbalance. Patient is currently resting in bed. However she complains of frequent diarrhea as well as nausea vomiting. No fever but chills. Physical Exam Vital signs: Vital Signs 12/17/17 20:00 12/18/17 00:00 12/18/17 08:00 Temperature 97.8 F 97 F L 98.7 F Pulse Rate 84 87 86 Respiratory Rate 20 20 16 Blood Pressure 122/83 119/80 157/110 H Pulse Oximetry 97 98 96 12/18/17 11:58 Temperature 98.3 F Pulse Rate 89 Respiratory Rate 17 Blood Pressure 151/88 H Pulse Oximetry 96 Intake & Output 12/17/17 12/18/17 12/18/17 18:59 06:59 18:59 Intake Total 1650 / 1650 2030 / 2030 1070 / 1070 Output Total 710 / 710 Balance 1650 / 1650 1320 / 1320 1070 / 1070 Weight 59.8 kg Intake: IV 1200 / 1200 1030 / 1030 1070 / 1070 NS Inj 1,000 ML @ 100 mls/hr IV 1000 / 1000 .CONT .Q10H MICKY Rx#:[id number] Potassium Chlor 20 mEq/NACL 0. 1000 / 1000 1000 / 1000 45% Inj 1,000 ML @ 100 mls/hr IV.SIG .Q10H MICKY Rx#:[id number] Magnesium Sulfate 1 gm/D5W 100 100 / 100 ml Premix 100 ML @ 100 mls/hr IV.SIG ONCE ONE Rx#:[id number] KCl 20 mEq Premix Inj 20 meq In 100 / 100 30 / 30 100 ml @ 50 mls/hr IV.SIG Q2H MICKY Rx#:[id number] Oral 450 / 450 Other 1000 / 1000 Output: Urine 650 / 650 Stool 60 / 60 Other: Other Intake Source Saline Solution Date of Last Bowel Movement 12/18/17 12/18/17 Narrative: GENERAL: Alert, oriented x3, NAD. SKIN: Warm and dry. HEAD: Normocephalic. EYES: No scleral icterus. No injection or drainage. NECK: Supple, trachea midline. No JVD or lymphadenopathy. CARDIOVASCULAR: Regular rate and rhythm without murmurs, gallops, or rubs. RESPIRATORY: Breath sounds equal bilaterally. No accessory muscle use. GASTROINTESTINAL: Abdomen soft, tender to palpation to the left side, nondistended. MUSCULOSKELETAL: No cyanosis, or edema. BACK: Nontender without obvious deformity. No CVA tenderness. Results - Labs CBC & Chem 7: 12/17/17 07:50 12/17/17 15:05 Laboratory Results - last 24 hr 12/17/17 06:00 Stool C.difficile Ag Negative Stool C.difficile Toxin Negative Microbiology 12/17/17 06:00 Stool Stool for WBCs - Final No WBC's seen - Imaging Abdomen/Pelvis CT 12/16/17 17:17 CONCLUSION: 1. [id number] diverticulosis with no inflammatory change or evidence of obstruction. 2. Bilateral nonobstructing renal calculi with multiple left parapelvic cysts again noted. 3. Probable small gallstones with no gallbladder wall thickening or inflammatory change. Assessment and Plan - Assessment (1) Renal insufficiency Code(s): N28.9 - Disorder of kidney and ureter, unspecified Status: Acute (2) Nausea & vomiting Code(s): R11.2 - Nausea with vomiting, unspecified Status: Acute (3) Gastroenteritis Code(s): K52.9 - Noninfective gastroenteritis and colitis, unspecified Status : Acute (4) Abdominal pain Code(s): R10.9 - Unspecified abdominal pain Status: Acute - Plan This is a 72-year-old female patient with a known medical history of hypertension, diverticulitis and chronic back pain who presented to the ED with complaints of abdominal pain, nausea, vomiting and diarrhea times 3 days. Patient follows up with an infectious disease doctor Dr. Bonilla with regards to recurrent urinary tract infection. She recently finished a course of tobramycin about a month ago. Probable C. difficile colitis C. difficile PCR DNA is positive. I discussed with Dr. Bonilla who recommended starting p.o. vancomycin. -Abdominal/pelvis CT reviewed showed no acute abnormalities. -Zofran as needed for nausea. -Pain control with Dilaudid IV as needed. Hypokalemia -Potassium 3.0 upon presentation, currently 2.8. We will continue to replace potassium IV. -Magnesium is 1.8. Will provide 2 g of IV magnesium sulfate. Acute kidney injury suspect secondary to dehydration -Creatinine 1.6 on presentation, has improved to 1.0 on 12/17/2017. Will continue IV fluids. We will repeat BMP in the morning. Chronic back pain: Will continue home prednisone. Patient is on Dilaudid at home. Full code. SCDs.
[2017-12-18] MEDS: Mag Sulf 1 gm/100 ml Premix 100 ML IV.SIG SCH ×2 (17:18→18:23)
[2017-12-19] MEDS: KCL 20 mEq/NACL 0.45% Inj 1,000 ML IV.SIG SCH ×3 (03:51→12:00)
[2017-12-19 07:58] LABS: Calcium 7.9 mg/dL (8.5-10.1); Carbon Dioxide 22.3 meq/L (21.0-32.0)
[2017-12-19 08:00] LABS: Potassium 2.9 meq/L (3.5-5.1)
[2017-12-19] MEDS: Lactobacillus Acidophilus/L. Spores Tablet PO SCH (09:20)
[2017-12-19] MEDS: predniSONE 1 MG Tablet PO SCH (09:20)
[2017-12-19] MEDS: predniSONE 5 MG Tablet PO SCH (09:20)
[2017-12-19] MEDS: Lisinopril 5 MG Tablet PO SCH (09:23)
[2017-12-19] MEDS: Potassium Chlor 20 mEq Premix 20 MEQ/100 ML PIGGYBACK IV.SIG SCH ×5 (12:00→20:34)
--- NOTE | 2017-12-19 12:11 | P.PN ---
Subjective Interval history: Follow-up for nausea vomiting, diarrhea, electrolyte imbalance. Patient was started on PO Vancomycin yesterday. Continues to have watery diarrhea. Afebrile. Physical Exam Vital signs: Vital Signs 12/18/17 16:00 12/18/17 20:00 12/19/17 08:00 Temperature 98.6 F 97.7 F 97.0 F L Pulse Rate 84 87 107 H Respiratory Rate 17 20 20 Blood Pressure 140/80 157/95 H 146/75 H Pulse Oximetry 97 98 96 Intake & Output 12/18/17 12/19/17 12/19/17 18:59 06:59 18:59 Intake Total 1170 / 1170 1340 / 1340 390 / 390 Output Total 360 / 360 200 / 200 Balance 1170 / 1170 980 / 980 190 / 190 Weight 59.7 kg Intake: IV 1170 / 1170 100 / 100 150 / 150 Potassium Chlor 20 mEq/NACL 0. 1000 / 1000 0 / 0 150 / 150 45% Inj 1,000 ML @ 100 mls/hr IV.SIG .Q10H MICKY Rx#:[id number] Magnesium Sulfate 1 gm/D5W 100 100 / 100 100 / 100 ml Premix 100 ML @ 100 mls/hr IV.SIG Q1H MICKY Rx#:[id number] Oral 240 / 240 240 / 240 Other 1000 / 1000 Output: Urine 360 / 360 200 / 200 Other: Other Intake Source Saline Solution # Voids 3 3 Date of Last Bowel Movement 12/18/17 12/18/17 Narrative: GENERAL: Alert, oriented x3, NAD. SKIN: Warm and dry. HEAD: Normocephalic. EYES: No scleral icterus. No injection or drainage. NECK: Supple, trachea midline. No JVD or lymphadenopathy. CARDIOVASCULAR: Regular rate and rhythm without murmurs, gallops, or rubs. RESPIRATORY: Breath sounds equal bilaterally. No accessory muscle use. GASTROINTESTINAL: Abdomen soft, tender to palpation to the left side, nondistended. MUSCULOSKELETAL: No cyanosis, or edema. BACK: Nontender without obvious deformity. No CVA tenderness. Results - Labs CBC & Chem 7: 12/17/17 07:50 12/19/17 06:55 Laboratory Results - last 24 hr 12/17/17 12/18/17 12/19/17 06:00 17:52 06:55 Sodium 143 Potassium 3.1 L 2.9 L* Chloride 108 H Carbon Dioxide 22.3 Anion Gap 13 BUN 8 Creatinine 0.70 Estimated GFR 82 L Random Glucose 60 L Calcium 7.9 L Stool C.difficile Ag Negative Stool C.difficile Toxin Negative Assessment and Plan - Assessment (1) Renal insufficiency Code(s): N28.9 - Disorder of kidney and ureter, unspecified Status: Acute (2) Nausea & vomiting Code(s): R11.2 - Nausea with vomiting, unspecified Status: Acute (3) Gastroenteritis Code(s): K52.9 - Noninfective gastroenteritis and colitis, unspecified Status : Acute (4) Abdominal pain Code(s): R10.9 - Unspecified abdominal pain Status: Acute - Plan This is a 72-year-old female patient with a known medical history of hypertension, diverticulitis and chronic back pain who presented to the ED with complaints of abdominal pain, nausea, vomiting and diarrhea times 3 days. Patient follows up with an infectious disease doctor Dr. Bonilla with regards to recurrent urinary tract infection. She recently finished a course of tobramycin about a month ago. Probable C. difficile colitis C. difficile PCR DNA is positive. I discussed with Dr. Bonilla who recommended starting p.o. vancomycin. -Abdominal/pelvis CT reviewed showed no acute abnormalities. -Zofran as needed for nausea. -Pain control with Dilaudid IV as needed. -Will consult Dr. Bonilla due to Diarrhea and C. Diff. Hypokalemia -Potassium 3.0 upon presentation, currently 3.1 --> 2.9. -Pt received IV mag sulfate yesterday. Continue with IV KCL replacement today. Acute kidney injury suspect secondary to dehydration -Creatinine 1.6 on presentation, has improved to 0.7 on 12/19/2017. Will continue IV fluids. Chronic back pain: Will continue home prednisone. Patient is on Dilaudid at home. Full code. SCDs.
--- NOTE | 2017-12-19 13:36 | P.CONID ---
History of Present Illness Service: Infectious Disease Consult date: 12/19/17 Requesting Physician: Rosibel Gomez Reason for Consult: Diarrhea Primary Care Provider: Corky Mendiola MD Chief Complaint: Abdominal pain, n/v and diarrhea History of Present Illness: 72/ F patient with h/o interstitial cystitis, esophageal strictures, stones and recurrent UTIs and multiple drug allergies has been treated with IV antibiotics in the past for her UTI - came in with worsening nausea, vomiting and diarrhea with abdominal cramping. Patient has not had a esophageal dilatation in a while. Patient's C diff antigen and toxin were negative but DNA amplification was positive and in view of patient's history - was started on PO Vancomycin last evening. Patient still has diarrhea though says one stool with more form. PMFSH - History History Provided By: Patient - Medical History Medical History: Medical History (Last Reviewed 12/17/17 @ 11:11 by Lizzie Mitchell) Esophageal stricture Fibromyalgia GERD (gastroesophageal reflux disease) Gastric ulcer Hypertension Interstitial cystitis Osteoporosis Polymyalgia rheumatica Recurrent UTI - Surgical History Surgical History: Surgical History (Last Reviewed 12/17/17 @ 11:11 by Lizzie Mitchell) Hx of appendectomy Hx of tonsillectomy - Family History Family History: Family History (Last Updated 12/17/17 @ 11:11 by Lizzie Mitchell) Other Family history non-contributory - Tobacco History Second Hand Smoke Exposure: No Smoking Status: Never smoker - Alcohol History How Often Do You Have a Drink Containing Alcohol: Never - Substance Use History Substance History: No History of Abuse - Travel History Recent Travel in the [place] Within the Last 8 Weeks: No Recent Travel Out of the Country Within the Last 8 Weeks: No - Immunization History Tetanus Immunization: >5 Years Medications and Allergies Active Medications: Active Medications Acetaminophen (Tylenol) 650 mg PO Q4H PRN PRN Reason: Headache, fever Al Hydroxide/Mg Hydroxide (Milk Of Magnesia Liq) 30 ml PO Q12H PRN PRN Reason: Mild Constipation Bisacodyl (Dulcolax Supp) 10 mg RECTAL DAILY PRN PRN Reason: SEVERE CONSITIPATION Hydromorphone HCl (Dilaudid) 4 mg PO Q6H PRN PRN Reason: PAIN SCALE 1 TO 10 Last Admin: 12/19/17 11:44 Dose: 4 mg Potassium Chloride/Sodium Chloride (Potassium Chlor 20 Meq/Nacl 0.45% Inj) 1, 000 mls @ 100 mls/hr IV.SIG .Q10H [facility] Last Admin: 12/19/17 07:06 Dose: 100 mls/hr Potassium Chloride (Kcl 20 Meq Premix Inj) 20 meq in 100 mls @ 50 mls/hr IV.SIG Q2H [facility] Stop: 12/19/17 19:59 Lactobacillus Acidophilus (Lactinex) 2 tab PO DAILY [facility] Last Admin: 12/19/17 09:20 Dose: 2 tab Lactulose (Lactulose Liq) 30 ml PO DAILY PRN PRN Reason: SEVERE CONSITIPATION Lisinopril (Prinivil) 5 mg PO DAILY [facility] Last Admin: 12/19/17 09:23 Dose: 5 mg Ondansetron HCl (Zofran Inj) 4 mg IV.PUSH Q6H PRN PRN Reason: NAUSEA OR VOMITING Last Admin: 12/19/17 05:09 Dose: 4 mg Patient Own Medication (Patient Own Medication) 0 each PO DAILY [facility] Last Admin: 12/19/17 11:26 Dose: Not Given Prednisone (Deltasone) 5 mg PO DAILY [facility] Last Admin: 12/19/17 09:20 Dose: 5 mg Prednisone (Deltasone) 2 mg PO DAILY [facility] Last Admin: 12/19/17 09:20 Dose: 2 mg Sennosides (Senokot) 17.2 mg PO Q12H PRN PRN Reason: Moderate Constipation Sodium Chloride (Ns Flush) 2 ml IV.FLUSH PRN PRN PRN Reason: FLUSH AFTER USING IV ACCESS Vancomycin HCl (Vancomycin Po) 125 mg PO QID [facility] Last Admin: 12/19/17 12:40 Dose: 125 mg Allergies Allergy/AdvReac Type Severity Reaction Status Date / Time ceftriaxone Allergy Severe Rash Verified 12/16/17 17:01 diatrizoate meglumine Allergy Severe SWELLS UP Verified 12/16/17 17:01 AND RASH fentanyl Allergy Severe Hypotension Verified 12/16/17 17:01 gadobenic acid Allergy Severe SWELLS UP Verified 12/16/17 17:01 AND RASH gadodiamide Allergy Severe SWELLS UP Verified 12/16/17 17:01 AND RASH gadoteridol Allergy Severe SWELLS UP Verified 12/16/17 17:01 AND RASH iodine Allergy Severe Rash Verified 12/16/17 17:01 iodixanol Allergy Severe SWELLS UP Verified 12/16/17 17:01 AND RASH iohexol Allergy Severe SWELLS UP Verified 12/16/17 17:01 AND RASH milnacipran Allergy Severe Rash Verified 12/16/17 17:01 nitrofurantoin Allergy Severe Hives Verified 12/16/17 17:01 potassium iodide Allergy Severe Rash Verified 12/16/17 17:01 povidone-iodine Allergy Severe Rash Verified 12/16/17 17:01 sodium iodide Allergy Severe Rash Verified 12/16/17 17:01 sodium iodide Allergy Severe Rash Verified 12/16/17 17:01 zolpidem Allergy Severe Hallucinati Verified 12/16/17 17:01 ons *MDRO Multi-Drug Resistant AdvReac Unknown unknown Uncoded 11/13/17 11:15 Organism Home Medications Medication Instructions Recorded Confirmed Type Bacillus coagulans [Digestive 2 cap PO DAILY 11/11/17 12/16/17 History Advantage] hydromorphone 4 mg PO Q6H PRN 11/11/17 12/16/17 History linaclotide [Linzess] 290 mcg PO DAILY 11/11/17 12/16/17 History ondansetron 8 mg PO BID PRN 11/11/17 12/16/17 History pantoprazole 40 mg PO DAILY 11/11/17 12/16/17 History prednisone 7 mg PO DAILY 11/11/17 12/16/17 History lisinopril 5 mg PO DAILY 12/16/17 12/16/17 History nitroglycerin 0.4 mg SUBLINGUAL Q5-15M PRN 12/16/17 12/16/17 History Exam Vital signs: Vital Signs 12/18/17 16:00 12/18/17 20:00 12/19/17 08:00 Temperature 98.6 F 97.7 F 97.0 F L Pulse Rate 84 87 107 H Respiratory Rate 17 20 20 Blood Pressure 140/80 157/95 H 146/75 H Pulse Oximetry 97 98 96 12/19/17 12:14 Temperature Pulse Rate Respiratory Rate 18 Blood Pressure Pulse Oximetry Intake & Output 12/18/17 12/19/17 12/19/17 18:59 06:59 18:59 Intake Total 1170 / 1170 1340 / 1340 390 / 390 Output Total 360 / 360 200 / 200 Balance 1170 / 1170 980 / 980 190 / 190 Weight 59.7 kg Intake: IV 1170 / 1170 100 / 100 150 / 150 Potassium Chlor 20 mEq/NACL 0. 1000 / 1000 0 / 0 150 / 150 45% Inj 1,000 ML @ 100 mls/hr IV.SIG .Q10H [facility] Rx#:[id number] Magnesium Sulfate 1 gm/D5W 100 100 / 100 100 / 100 ml Premix 100 ML @ 100 mls/hr IV.SIG Q1H [facility] Rx#:[id number] Oral 240 / 240 240 / 240 Other 1000 / 1000 Output: Urine 360 / 360 200 / 200 Other: Other Intake Source Saline Solution # Voids 3 3 Date of Last Bowel Movement 12/18/17 12/18/17 Results - Labs CBC & Chem 7: 12/17/17 07:50 12/19/17 06:55 Labs: Laboratory Results - last 24 hr 12/18/17 12/19/17 17:52 06:55 Sodium 143 Potassium 3.1 L 2.9 L* Chloride 108 H Carbon Dioxide 22.3 Anion Gap 13 BUN 8 Creatinine 0.70 Estimated GFR 82 L Random Glucose 60 L Calcium 7.9 L Assessment and Plan (1) C. difficile diarrhea Status: Acute Code(s): A04.72 - Enterocolitis due to Clostridium difficile, not specified as recurrent (2) Renal insufficiency Status: Acute Code(s): N28.9 - Disorder of kidney and ureter, unspecified (3) Nausea & vomiting Status: Acute Code(s): R11.2 - Nausea with vomiting, unspecified (4) Gastroenteritis Status: Acute Code(s): K52.9 - Noninfective gastroenteritis and colitis, unspecified (5) Abdominal pain Status: Acute Code(s): R10.9 - Unspecified abdominal pain - Plan Patient is very symptomatic and has C diff amplification DNA positive so will treat Continue PO Vancomycin 125 mg po qid Explained to patient that symptoms may take a little longer to get better Symptomatic treatment of nausea, vomiting If Vomiting persists may need GI evaluation.
[2017-12-19 21:27] VITALS: RESP 20
[2017-12-20] MEDS: Potassium Chlor 20 mEq Premix 20 MEQ/100 ML PIGGYBACK IV.SIG SCH ×2 (01:06→05:15)
[2017-12-20] MEDS: KCL 20 mEq/NACL 0.45% Inj 1,000 ML IV.SIG SCH ×2 (03:37→11:28)
[2017-12-20] MEDS: predniSONE 1 MG Tablet PO SCH (08:46)
[2017-12-20] MEDS: predniSONE 5 MG Tablet PO SCH (08:46)
[2017-12-20] MEDS: Lactobacillus Acidophilus/L. Spores Tablet PO SCH (08:46)
[2017-12-20] MEDS: Lisinopril 5 MG Tablet PO SCH (08:47)
[2017-12-20 14:54] VITALS: BP 180/87; PULSE 97; TEMP 98.5; O2SAT 96
--- NOTE | 2017-12-20 16:32 | P.DS ---
Date of admission: 12/16/17 19:21 Primary care physician: Corky Mendiola MD Attending physician on discharge: Rosibel Gomez Anticipated date of discharge: 12/20/17 Brief History from admission: This is a 72-year-old female patient with a known medical history of hypertension, diverticulitis and chronic back pain who presented to the ED with complaints of abdominal pain, nausea, vomiting and diarrhea times 3 days. Patient states that her abdominal pain started 3 days ago in her left upper quadrant and radiated to her left lower quadrant, she admits to poor appetite for the past few days with little to drink or eat without nausea and vomiting. She denies any recent fevers, chills, headache, cough, dysuria. She does state that she has been following with Dr. Leo 2, gastroenterology, for esophageal strictures and has underwent multiple esophageal dilations in the past. Her last esophageal dilation was 5 months ago. She states she has trouble swallowing foods and has to keep her diet to soft and bland foods. Patient also states she has had multiple UTIs in the past, followed previously with Dr. Bonilla, infectious disease and has had multiple IV antibiotic infusions. She has not seen Dr. Bonilla for many months now. At the present time of assessment patient states she feels much improved overnight, her nausea is more improved, she denies any vomiting overnight. Diarrhea slowed up. Electrolytes are still abnormal this morning, will continue replacement. Encourage p.o. intake. Patient update on day of discharge: Follow up for C. Diff colitis, hypokalemia. Patient is doing well. Reports improvement of her abdominal pain, nausea as well as a diarrhea. Tolerating diet well. Would like to go home. DS: Diagnosis - Discharge Diagnosis (1) Renal insufficiency Status: Acute (2) Nausea & vomiting Status: Acute (3) Gastroenteritis Status: Acute (4) Abdominal pain Status: Acute DS: Medications - Discharge Medications Prescriptions: vancomycin 125 mg PO QID 10 Days #40 cap DS: Summary Hospital Course: This is a 72-year-old female patient with a known medical history of hypertension, diverticulitis and chronic back pain who presented to the ED with complaints of abdominal pain, nausea, vomiting and diarrhea times 3 days. Patient follows up with an infectious disease doctor Dr. Bonilla with regards to recurrent urinary tract infection. She recently finished a course of tobramycin about a month ago. Probable C. difficile colitis C. difficile PCR DNA is positive. I discussed with Dr. Bonilla who recommended starting p.o. vancomycin. -Abdominal/pelvis CT reviewed showed no acute abnormalities. -Zofran as needed for nausea. -Pain control with Dilaudid IV as needed. Hypokalemia -Potassium 3.0 upon presentation, currently 3.1 --> 2.9. -Pt received IV mag sulfate and multiple doses of IV KCL. K+ 4.1 on the day of discharge. -BMP in one week upon discharge. Acute kidney injury suspect secondary to dehydration -Creatinine 1.6 on presentation, has improved to 0.7 on 12/19/2017. Chronic back pain: Will continue home prednisone. Patient is on Dilaudid at home. Follow up with PCP and ID in the outpatient setting. - Time Spent with Patient Total time spent providing and/or coordinating discharge services: Less than 30 minutes - Quality: VTE Deep Vein Thrombosis/Pulmonary Embolism Present on Admission: No Exam Vital signs: Vital Signs 12/19/17 18:16 12/19/17 20:00 12/20/17 00:00 Temperature 97.2 F L 97.7 F Pulse Rate 89 87 Respiratory Rate 18 20 20 Blood Pressure 153/96 H 111/62 Pulse Oximetry 96 100 12/20/17 06:00 12/20/17 08:00 12/20/17 12:00 Temperature 97.5 F L 98.5 F Pulse Rate 74 97 H Respiratory Rate 20 20 20 Blood Pressure 153/67 H 180/87 H Pulse Oximetry 98 96 Intake & Output 12/19/17 12/20/17 12/20/17 18:59 06:59 18:59 Intake Total 990 / 990 1780 / 1780 1640 / 1640 Output Total 400 / 400 400 / 400 Balance 590 / 590 1780 / 1780 1240 / 1240 Weight 60.6 kg Intake: IV 150 / 150 1300 / 1300 1100 / 1100 Potassium Chlor 20 mEq/NACL 0. 150 / 150 1000 / 1000 1000 / 1000 45% Inj 1,000 ML @ 100 mls/hr IV.SIG .Q10H [facility] Rx#:[id number] KCl 20 mEq Premix Inj 20 meq In 300 / 300 100 / 100 100 ml @ 50 mls/hr IV.SIG Q2H [facility] Rx#:[id number] Oral 840 / 840 480 / 480 540 / 540 Output: Urine 400 / 400 400 / 400 Other: # Voids 3 Date of Last Bowel Movement 12/19/17 12/19/17 # Bowel Movements 6 Narrative: GENERAL: Alert, oriented x3, NAD. SKIN: Warm and dry. HEAD: Normocephalic. EYES: No scleral icterus. No injection or drainage. NECK: Supple, trachea midline. No JVD or lymphadenopathy. CARDIOVASCULAR: Regular rate and rhythm without murmurs, gallops, or rubs. RESPIRATORY: Breath sounds equal bilaterally. No accessory muscle use. GASTROINTESTINAL: Abdomen soft, mild (improved) tender to palpation to the left side, nondistended. MUSCULOSKELETAL: No cyanosis, or edema. BACK: Nontender without obvious deformity. No CVA tenderness. Results Procedures completed during hospitalization: None. Labs on day of discharge: Labs from last 24 hours 12/20/17 12/20/17 12:52 12:52 Potassium 4.1 D Magnesium 2.0 - Impressions ITS Impressions Abdomen/Pelvis CT 12/16/17 17:17 CONCLUSION: 1. [id number] diverticulosis with no inflammatory change or evidence of obstruction. 2. Bilateral nonobstructing renal calculi with multiple left parapelvic cysts again noted. 3. Probable small gallstones with no gallbladder wall thickening or inflammatory change. Discharge Plan - Discharge Disposition Patient Disposition: 01 Discharge Home - Discharge Condition Condition: Fair - Discharge Order Discharge Orders: Discharge Order (Routine); Ordered 12/20/17 Ordered By: Rosibel Gomez - Discharge Details Anticipated Discharge Date: 12/18/17 - Physicians Team Primary Care Provider: Corky Mendiola Attending Provider: Rosibel Gomez Other Providers: Reyna Bonilla MD
== END 2017-12-20 16:26 | disposition home or self-care (01) ==
LOC: PHED 16:51 → PHEDA 16:51 → PH3 20:46
PROVIDERS: ADMIT Hospitalist; ATTEND Hospitalist

== ENCOUNTER 2017-12-24 11:05 | Inpatient (IN) ==
--- NOTE | 2017-12-24 11:46 | ED ---
HPI General Chief Complaint: Overdose Stated Complaint: Poss OD/POPD Time Seen by Provider: 12/24/17 11:41 Source: patient and police Mode of arrival: EMS Limitations: no limitations History of Present Illness HPI Narrative: The patient is a 72-year-old female with history of back pain on pain management that was brought in via [facility] secondary to intentional overdose. [facility] arrived to the scene where the patient had call for complaint of back pain and told him that she took 4 times the amount of her Dilaudid tablets and 2 times of her Lunesta because she did not want to go on living anymore. EVAC called police who arrived and placed the patient under Ramirez act for making statements regarding ending her life. Patient denies any previous suicide attempt. No Narcan was given she is awake and alert and able to protect the airway. EMS report no somnolence. Unknown initial onset of ingestion patient stated it was sometime this morning when she woke up. Patient had recent C. difficile colitis. Denies any abdominal pain diarrhea fever chills MD complaint: Reports intentional overdose Onset (ago): unknown Intent: suicide attempt How Overdose Was Discovered: called 911 Context: Intentional Overdose: other (cannot stand being in pain anymore) Associated symptoms: depression Treatments Prior to Arrival: none Related Data Home Medications Medication Instructions Recorded Confirmed Bacillus coagulans [Digestive 2 cap PO DAILY 11/11/17 12/16/17 Advantage] hydromorphone 4 mg PO Q6H PRN 11/11/17 12/16/17 linaclotide [Linzess] 290 mcg PO DAILY 11/11/17 12/16/17 ondansetron 8 mg PO BID PRN 11/11/17 12/16/17 pantoprazole 40 mg PO DAILY 11/11/17 12/16/17 prednisone 7 mg PO DAILY 11/11/17 12/16/17 lisinopril 5 mg PO DAILY 12/16/17 12/16/17 nitroglycerin 0.4 mg SUBLINGUAL Q5-15M PRN 12/16/17 12/16/17 Previous Rx's Medication Instructions Recorded vancomycin 125 mg PO QID 10 Days #40 cap 12/20/17 Allergies Allergy/AdvReac Type Severity Reaction Status Date / Time ceftriaxone Allergy Severe Rash Verified 12/16/17 17:01 diatrizoate meglumine Allergy Severe SWELLS UP Verified 12/16/17 17:01 AND RASH fentanyl Allergy Severe Hypotension Verified 12/16/17 17:01 gadobenic acid Allergy Severe SWELLS UP Verified 12/16/17 17:01 AND RASH gadodiamide Allergy Severe SWELLS UP Verified 12/16/17 17:01 AND RASH gadoteridol Allergy Severe SWELLS UP Verified 12/16/17 17:01 AND RASH iodine Allergy Severe Rash Verified 12/16/17 17:01 iodixanol Allergy Severe SWELLS UP Verified 12/16/17 17:01 AND RASH iohexol Allergy Severe SWELLS UP Verified 12/16/17 17:01 AND RASH milnacipran Allergy Severe Rash Verified 12/16/17 17:01 nitrofurantoin Allergy Severe Hives Verified 12/16/17 17:01 potassium iodide Allergy Severe Rash Verified 12/16/17 17:01 povidone-iodine Allergy Severe Rash Verified 12/16/17 17:01 sodium iodide Allergy Severe Rash Verified 12/16/17 17:01 sodium iodide Allergy Severe Rash Verified 12/16/17 17:01 zolpidem Allergy Severe Hallucinati Verified 12/16/17 17:01 ons *MDRO Multi-Drug Resistant AdvReac Unknown unknown Uncoded 11/13/17 11:15 Organism Review of Systems Constitutional Reports body ache(s), Denies chills, Denies fever(s), Denies lethargy and Reports weakness Comments: generalized pain Musculoskeletal Reports back pain and Reports myalgias PMFSH History History Provided By: Patient, Medical Record, Tax Associate Attorney / EMT and Law Enforcement Medical History Medical History Esophageal stricture (Acute) Fibromyalgia (Acute) GERD (gastroesophageal reflux disease) (Acute) Gastric ulcer (Acute) Hypertension (Acute) Interstitial cystitis (Acute) Osteoporosis (Acute) Polymyalgia rheumatica (Acute) Recurrent UTI (Acute) Surgical History Surgical History Hx of appendectomy (Acute) Hx of tonsillectomy (Acute) Family History Family History Other Family history non-contributory Social History Social History (Reviewed 12/24/17 @ 11:53 by SHEMAR Pittman Substance History: No History of Abuse Second Hand Smoke Exposure: No Smoking Status: Never smoker How Often Do You Have a Drink Containing Alcohol: Never Recent Travel in [facility] within the Last 8 Weeks: No Recent Out of Country Travel within the Last 8 Weeks: No Exam Narrative Exam Narrative: GENERAL: Alert and oriented slow to responses but maintains without any signs of impairment. Well-nourished. Sluggish. SKIN: Focused skin assessment warm/dry. HEAD: Atraumatic. Normocephalic. EYES: Pupils equal and round. No scleral icterus. No injection or drainage. ENT: No nasal bleeding or discharge. Mucous membranes pink and moist. NECK: Trachea midline. No JVD. CARDIOVASCULAR: Regular rate and rhythm. No murmur appreciated. RESPIRATORY: No accessory muscle use. Clear to auscultation. Breath sounds equal bilaterally. GASTROINTESTINAL: Abdomen soft, non-tender, nondistended. Hepatic and splenic margins not palpable. MUSCULOSKELETAL: No obvious deformities. No clubbing. No cyanosis. No edema. NEUROLOGICAL: Awake and alert. No obvious cranial nerve deficits. Motor grossly within normal limits. Normal speech. PSYCHIATRIC: Appropriate mood and affect; insight and judgment normal. Course Reevaluation(s) Reevaluation #1: Resting comfortably no distress alert and oriented. Stable vitals. Time: 13:12 Initial Documented Vital Signs Temperature 98.1 F 12/24/17 11:36 Pulse Rate 96 H 12/24/17 11:36 Respiratory Rate 17 12/24/17 11:36 Blood Pressure 143/79 H 12/24/17 11:36 Pulse Oximetry 98 12/24/17 11:36 Last Documented Vital Signs Temperature 98.1 F 12/24/17 11:36 Pulse Rate 96 H 12/24/17 11:36 Respiratory Rate 17 12/24/17 11:36 Blood Pressure 143/79 H 12/24/17 11:36 Pulse Oximetry 98 12/24/17 11:36 Medical Decision Making MDM Narrative Medical decision making narrative: Patient was placed on a Ramirez act by police and brought to the emergency department for evaluation. Her labs are remarkable for BUN of 21 creatinine 1.3 with previous creatinine of 0.7 just 5 days ago. Patient also has a sodium of 146. We will give her a liter of LR and clear for psychiatric evaluation. Able to protect her airway no somnolence. No need for poison control inquiry at this time patient had 4 pills of Dilaudid totaling 8 mg and 2 pills of Lunesta. She is hemodynamically stable she is alert and oriented. Medical Screen Exam Complete: Yes Emergency Medical Condition: Yes Lab Data Result diagrams: 12/24/17 11:50 12/24/17 11:50 Lab Results 12/24/17 12/24/17 12/24/17 Range/Units 11:50 11:50 11:50 WBC 7.1 (4.0-11.0) th/mm3 RBC 4.33 (4.00-5.30) mil/mm3 Hgb 12.9 (11.6-15.3) gm/dL Hct 38.3 (35.0-46.0) % MCV 88.3 (80.0-100.0) fL MCH 29.8 (27.0-34.0) pg MCHC 33.7 (32.0-36.0) % RDW 14.6 (11.6-17.2) % Plt Count 173 D (150-450) th/mm3 MPV 9.1 (7.0-11.0) fL Neut % (Auto) 67.9 (16.0-70.0) % Lymph % (Auto) 20.5 (9.0-44.0) % [place] % (Auto) 7.9 (0.0-8.0) % Eos % (Auto) 2.8 (0.0-4.0) % Baso % (Auto) 0.9 (0.0-2.0) % Neut # (Auto) 4.8 (1.8-7.7) th/mm3 Lymph # (Auto) 1.5 (1.0-4.8) th/mm3 [place] # (Auto) 0.6 (0.0-0.9) th/mm3 Eos # (Auto) 0.2 (0.0-0.4) th/mm3 Baso # (Auto) 0.1 (0.0-0.2) th/mm3 WBC Differential . Differential Comment Auto diff final Sodium 146 H (136-145) meq/L Potassium 3.6 (3.5-5.1) meq/L Chloride 110 H (98-107) meq/L Carbon Dioxide 30.7 (21.0-32.0) meq/L Anion Gap 5 (5-15) meq/L BUN 21 H (7-18) mg/dL Creatinine 1.31 H (0.50-1.00) mg/dL Estimated GFR 40 L (>89) mL/min Random Glucose 87 (74-106) mg/dL Calcium 9.0 (8.5-10.1) mg/dL Magnesium 1.9 (1.5-2.5) mg/dL Total Bilirubin 0.5 (0.2-1.0) mg/dL AST 32 (15-37) U/L ALT 18 (10-53) U/L Alkaline Phosphatase 54 (45-117) U/L Total Protein 6.5 (6.4-8.2) g/dL Albumin 3.4 (3.4-5.0) g/dL Salicylates Less than 1.7 L (2.8-20.0) mg/dL Acetaminophen Less than 2.0 L (10.0-30.0) mcg/mL Serum Alcohol Less than 3 (0-5) mg/dL Imaging Data Radiologist's impression: Chest X-Ray 12/24/17 11:42 CONCLUSION: No acute cardiopulmonary disease identified. ECG Data EKG Prior to Arrival: No Attestation: I personally reviewed and interpreted this ECG as follows: Interpretation: Normal sinus rhythm 90 bpm HI interval 136 ms QTc 410 ms. Normal axis. Nonspecific ST-T wave abnormalities. No signs of acute ischemia. Discharge Plan Discharge Disposition Patient Disposition: 30 Still Patient Discharge Condition Condition: Good Discharge Details Diagnosis: Suicide attempt, Intentional opiate overdose, Acute prerenal azotemia, JOCELYNE ( acute kidney injury), Medical clearance for psychiatric admission Physicians Team ED Provider: Bry Suárez Primary Care Provider: Corky Mendioal Rxs /Orders / Referrals /Forms Prescriptions: No Action prednisone 5 mg Tablet 7 mg PO DAILY RF: 0 ondansetron 8 mg Tablet,Disintegrating 8 mg PO BID PRN (Reason: Nausea) RF: 0 pantoprazole 40 mg Tablet,Delayed Release (Dr/Ec) 40 mg PO DAILY RF: 0 hydromorphone 4 mg Tablet 4 mg PO Q6H PRN (Reason: Pain) RF: 0 linaclotide [Linzess] 290 mcg Capsule 290 mcg PO DAILY RF: 0 Bacillus coagulans [Digestive Advantage] 250 million cell Tablet,Chewable 2 cap PO DAILY RF: 0 nitroglycerin 0.4 mg Tablet, Sublingual 0.4 mg SUBLINGUAL Q5-15M PRN (Reason: Spasms) RF: 0 lisinopril 5 mg Tablet 5 mg PO DAILY RF: 0 vancomycin 125 mg Capsule 125 mg PO QID 10 Days Qty: 40 RF: 0 Status ED Status: With Doctor
[2017-12-24 12:21] LABS: Baso # (Auto) 0.1 th/mm3 (0.0-0.2); Baso % (Auto) 0.9 % (0.0-2.0); Eos # (Auto) 0.2 th/mm3 (0.0-0.4); Eos % (Auto) 2.8 % (0.0-4.0); Hematocrit 38.3 % (35.0-46.0); Hemoglobin 12.9 gm/dL (11.6-15.3); Lymph # (Auto) 1.5 th/mm3 (1.0-4.8); Lymph % (Auto) 20.5 % (9.0-44.0); Mean Corpuscular HGB Conc 33.7 % (32.0-36.0); Mean Corpuscular Hemoglobin 29.8 pg (27.0-34.0); Mean Corpuscular Volume 88.3 fL (80.0-100.0); Mean Platelet Volume 9.1 fL (7.0-11.0); Mono # (Auto) 0.6 th/mm3 (0.0-0.9); Mono % (Auto) 7.9 % (0.0-8.0); Neut # (Auto) 4.8 th/mm3 (1.8-7.7); Neut % (Auto) 67.9 % (16.0-70.0); Platelet Count 173 th/mm3 (150-450); Red Blood Count 4.33 mil/mm3 (4.00-5.30); Red Cell Distribution Width 14.6 % (11.6-17.2); White Blood Count 7.1 th/mm3 (4.0-11.0)
[2017-12-24 12:39] LABS: Albumin 3.4 g/dL (3.4-5.0); Anion Gap 5 meq/L (5-15); Aspartate Aminotransferase 32 U/L (15-37); Blood Urea Nitrogen 21 mg/dL (7-18); Carbon Dioxide 30.7 meq/L (21.0-32.0); Chloride 110 meq/L (98-107); Glomerular Filtration Rate 40 mL/min (>89); Glucose,Random 87 mg/dL (74-106); Magnesium 1.9 mg/dL (1.5-2.5); Potassium 3.6 meq/L (3.5-5.1); Sodium 146 meq/L (136-145)
[2017-12-24 12:42] LABS: Alanine Aminotransferase 18 U/L (10-53); Alkaline Phosphatase 54 U/L (45-117); Total Protein 6.5 g/dL (6.4-8.2)
--- NOTE | 2017-12-24 12:42 | XR ---
EXAM DATE: 12/24/2017 12:15 PM EST AGE/SEX: 72 years / Female INDICATIONS: Shortness of breath. CLINICAL DATA: This is the patient's initial encounter. Patient reports that signs and symptoms have been present for 1 day and indicates a pain score of Nonresponsive. MEDICAL/SURGICAL HISTORY: None. None. COMPARISON: [facility], CHEST SINGLE AP, 11/18/2014. . FINDINGS: Single AP view the chest. The lungs are clear. Cardiomediastinal silhouette within normal limits. No evidence of pleural effusion or pneumothorax. CONCLUSION: No acute cardiopulmonary disease identified. Electronically signed by: Rohan Tinoco MD 12/24/2017 12:41 PM EST
[2017-12-24] MEDS ORDERED: Aluminum/Magnesium/Simethacone Susp 30 ML UDC PO PRN (16:57)
[2017-12-24] MEDS ORDERED: Acetaminophen 325 MG Tablet PO PRN (16:57)
--- NOTE | 2017-12-24 18:42 | P.CONPSY ---
Provisional Diagnosis Admission Date: December 24, 2017 17:05 [place] Major depressive disorder History of Present Illness Primary Care Provider: Corky Mendiola MD History of Present Illness: This is a 72-year-old , female who presents to this facility under Ramirez act for attempted suicide by overdose. While she is previously known to this facility does not appear she is known to the psychiatric department. I reviewed her electronic medical record, labs, discussed case with staff. I note a toxicology screen was not completed. Patient was evaluated in C 36. She was found awake, alert, and oriented x4. Her speech is clear, logical, of normal volume and loc. She endorses feeling suicidal but denies homicidal ideation as well as auditory or visual hallucinations. She reported that she had took an overdose of medication because "I am tired of living in this body". She perseverates about her recent living well stating she felt the hospital was taking "extraordinary measures". We did have a discussion over what the term extraordinary measures tends to cover. Her mood is sad and her affect is depressed. I can elicit no delusional material. She does not appear to be psychotic nor manic. She relates her depression to a recent hospital admission pointing to bruising that is evident bilaterally around both arms consistent with multiple IVs. Patient reports that she lives with her of 54 years. 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 She states that they have a total of 4 children and 4 grandchildren. She denies smoking cigarettes, drinking alcohol, or using illegal drugs. She does report a history significant for fibromyalgia. She states that she has been under pain management for approximately 6 years and began using medical marijuana in August. She denies any previous suicidal attempts or self-harm. She denies family history of mental illness. 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, Law Enforcement - Medical History Medical History: Medical History (Last Reviewed 12/24/17 @ 18:48 by LE Garcia) Esophageal stricture Fibromyalgia GERD (gastroesophageal reflux disease) Gastric ulcer Hypertension Interstitial cystitis Osteoporosis Polymyalgia rheumatica Recurrent UTI - Surgical History Surgical History: Surgical History (Last Reviewed 12/24/17 @ 18:48 by LE Garcia) Hx of appendectomy Hx of tonsillectomy - Family History Family History: Family History (Last Reviewed 12/24/17 @ 11:53 by Bry Suárez DO) Other Family history non-contributory - Tobacco History Second Hand Smoke Exposure: No Smoking Status: Never smoker - Alcohol History How Often Do You Have a Drink Containing Alcohol: Never - Substance Use History Substance History: No History of Abuse - Travel History Recent Travel in the [place] Within the Last 8 Weeks: No Recent Travel Out of the Country Within the Last 8 Weeks: No - Immunization History Tetanus Immunization: Unsure Medications and Allergies Active Medications: Active Medications Acetaminophen (Tylenol) 650 mg PO Q4H PRN PRN Reason: Pain 1-5 or Temp >101F Al Hydrox/Mg Hydrox/Simethicone (Mag-Al Plus Susp Liq) 30 ml PO Q6H PRN PRN Reason: DYSPEPSIA Al Hydroxide/Mg Hydroxide (Milk Of Magnesia Liq) 30 ml PO Q12H PRN PRN Reason: Mild Constipation Lactated Ringer's (Lr 1000 Ml Inj) 1,000 mls @ 125 mls/hr IV.CONT .Q8H MICKY Last Infusion: 12/24/17 17:02 Dose: Infused Allergies Allergy/AdvReac Type Severity Reaction Status Date / Time ceftriaxone Allergy Severe Rash Verified 12/16/17 17:01 diatrizoate meglumine Allergy Severe SWELLS UP Verified 12/16/17 17:01 AND RASH fentanyl Allergy Severe Hypotension Verified 12/16/17 17:01 gadobenic acid Allergy Severe SWELLS UP Verified 12/16/17 17:01 AND RASH gadodiamide Allergy Severe SWELLS UP Verified 12/16/17 17:01 AND RASH gadoteridol Allergy Severe SWELLS UP Verified 12/16/17 17:01 AND RASH iodine Allergy Severe Rash Verified 12/16/17 17:01 iodixanol Allergy Severe SWELLS UP Verified 12/16/17 17:01 AND RASH iohexol Allergy Severe SWELLS UP Verified 12/16/17 17:01 AND RASH milnacipran Allergy Severe Rash Verified 12/16/17 17:01 nitrofurantoin Allergy Severe Hives Verified 12/16/17 17:01 potassium iodide Allergy Severe Rash Verified 12/16/17 17:01 povidone-iodine Allergy Severe Rash Verified 12/16/17 17:01 sodium iodide Allergy Severe Rash Verified 12/16/17 17:01 sodium iodide Allergy Severe Rash Verified 12/16/17 17:01 zolpidem Allergy Severe Hallucinati Verified 12/16/17 17:01 ons *MDRO Multi-Drug Resistant AdvReac Unknown unknown Uncoded 11/13/17 11:15 Organism Home Medications Medication Instructions Recorded Confirmed Type Bacillus coagulans [Digestive 2 cap PO DAILY 11/11/17 12/24/17 History Advantage] hydromorphone 4 mg PO Q6H PRN 11/11/17 12/24/17 History ondansetron 8 mg PO BID PRN 11/11/17 12/24/17 History pantoprazole 40 mg PO DAILY 11/11/17 12/24/17 History prednisone 7 mg PO DAILY 11/11/17 12/24/17 History lisinopril 5 mg PO DAILY 12/16/17 12/24/17 History nitroglycerin 0.4 mg SUBLINGUAL Q5-15M PRN 12/16/17 12/24/17 History Exam Vital signs: Vital Signs 12/24/17 11:36 12/24/17 15:00 12/24/17 17:00 Temperature 98.1 F Pulse Rate 96 H 86 91 H Respiratory Rate 17 15 17 Blood Pressure 143/79 H 138/65 150/70 H Pulse Oximetry 98 98 96 Intake & Output 12/23/17 12/24/17 12/24/17 18:59 06:59 18:59 Intake Total 1000 / 1000 Balance 1000 / 1000 Weight 132 lb Intake: IV 1000 / 1000 LR 1000 mL Inj 1,000 ML @ 125 1000 / 1000 mls/hr IV.CONT .Q8H [facility] Rx#: [id number] - Constitutional no acute distress, thin, cooperative - Routine HEENT Exam Head: Present: normocephalic, atraumatic - Routine Neurological Exam Present: alert, oriented X3 - Routine Psychiatric Exam Present: suicidal ideation, cooperative, depressed Mental Status Examination Appearance: Disheveled Consciousness: Alert Orientation: x4 Motor Activity: Other (Lying on the stretcher) Speech: Unremarkable Language: Adequate, Perseveration (On "extraordinary measures") Fund of Knowledge: Adequate Attention and Concentration: Adequate Memory: Unremarkable Mood: Sad Affect: Sad Thought Process & Associations: Intact, Tangential Thought Content: Appropriate Hallucination Type: None Delusion Type: None Suicidal Ideation: No Suicidal Plan: No Suicidal Intention: No Homicidal Ideation: No Homicidal Plan: No Homicidal Intention: No Insight: Fair Judgment: Impulsive Assessment and Plan - Assessment (1) Major depressive disorder Code(s): F32.9 - Major depressive disorder, single episode, unspecified Status : Acute - Plan Plan: Estimated LOS: [7] days patient is admitted to a locked psychiatric unit for further evaluation and treatment as deemed necessary. Justification for Continued Inpatient Stay: Moving this patient to a less restrictive environment would likely result in decompensation.
[2017-12-25 08:41] LABS: Calcium 8.3 mg/dL (8.5-10.1); Carbon Dioxide 29.8 meq/L (21.0-32.0); Potassium 3.2 meq/L (3.5-5.1)
[2017-12-25 08:45] LABS: Chol/HDL Ratio 3.47 Ratio; HDL Cholesterol 53.8 mg/dL (40.0-60.0)
[2017-12-25] MEDS ORDERED: Nitroglycerin SL (Override) 0.4 MG Tab SL PRN (08:45)
[2017-12-25] MEDS ORDERED: BACILLUS COAGULANS PO SCH (09:00)
[2017-12-25] MEDS ORDERED: predniSONE 5 MG Tablet PO SCH (09:00)
--- NOTE | 2017-12-25 09:24 | P.CON ---
History of Present Illness Service: [facility] Consult date: 12/25/17 Requesting Physician: Ramiro Clayton Reason for Consult: Medical management Primary Care Provider: Corky Mendiola MD Chief Complaint: BA for OD History of Present Illness: 72-year-old female with past medical history significant for HTN, GERD , fibromyalgia, polymyalgia rheumatica, chronic back pain, gastric ulcers, interstitial cystitis, frequent UTIs, and osteoporosis who presented to the emergency department under a Ramirez act. Patient apparently took extra dose of oral Dilaudid which he uses for chronic pain due to suicidal ideation. She has been admitted to medical psychiatry department and [facility] consulted for management of multiple medical issues. Patient is seen and examined in her room ambulating with no assistive devices and appears to be in no acute distress. Of note patient was recently at [facility] with treatment of nausea, vomiting and diarrhea for which was treated for C. difficile. Patient reports that she was compliant with her oral vancomycin however "ended up here" therefore did not continue this. She reports ongoing diarrhea and states that this morning she has had 5 liquid stools, denies any black or bloody color in stool. She denies any nausea, vomiting, abdominal pain or discomfort. She is able to eat and drink without any issues. Patient also complains of dysuria as well as bilateral lower back pain, states that she sees an infectious disease doctor due to frequent urinary tract infections and believes she may have one at the moment. She denies any fevers, chills, cough, shortness of breath, chest pain, headache or dizziness. Patient reports that she takes Dilaudid and prednisone chronically at home for her back pain and sees a pain management clinic for this. She is recently been started on medical marijuana in the hopes of weaning her off of oral Dilaudid. PMFSH - History History Provided By: Patient - Medical History Medical History: Medical History (Last Reviewed 12/24/17 @ 18:48 by LE Garcia) Esophageal stricture Fibromyalgia GERD (gastroesophageal reflux disease) Gastric ulcer Hypertension Interstitial cystitis Osteoporosis Polymyalgia rheumatica Recurrent UTI - Surgical History Surgical History: Surgical History (Last Reviewed 12/24/17 @ 18:48 by LE Garcia) Hx of appendectomy Hx of tonsillectomy - Family History Family History: Family History (Last Reviewed 12/24/17 @ 11:53 by Bry Suárez DO) Other Family history non-contributory - Tobacco History Second Hand Smoke Exposure: No Smoking Status: Never smoker - Alcohol History How Often Do You Have a Drink Containing Alcohol: Never - Substance Use History Substance History: No History of Abuse - Travel History Recent Travel in the [place] Within the Last 8 Weeks: No Recent Travel Out of the Country Within the Last 8 Weeks: No - Immunization History Tetanus Immunization: <5 Years Hx Influenza Vaccine This Season: Yes Medications and Allergies Active Medications: Active Medications Acetaminophen (Tylenol) 650 mg PO Q4H PRN PRN Reason: Pain 1-5 or Temp >101F Al Hydrox/Mg Hydrox/Simethicone (Mag-Al Plus Susp Liq) 30 ml PO Q6H PRN PRN Reason: DYSPEPSIA Al Hydroxide/Mg Hydroxide (Milk Of Magnesia Liq) 30 ml PO Q12H PRN PRN Reason: Mild Constipation Hydromorphone HCl (Dilaudid) 2 mg PO Q6H PRN PRN Reason: Pain 6-10 Lisinopril (Prinivil) 5 mg PO DAILY MICKY Nitroglycerin (Nitrostat Sl) 0.4 mg SL Q5M PRN PRN Reason: CHEST PAIN Pantoprazole Sodium (Protonix) 40 mg PO DAILY MICKY Prednisone (Deltasone) 5 mg PO DAILY MICKY Prednisone (Deltasone) 2 mg PO DAILY MICKY Vancomycin HCl (Vancomycin Po) 125 mg PO QID MICKY Stop: 12/31/17 08:59 Allergies Allergy/AdvReac Type Severity Reaction Status Date / Time ceftriaxone Allergy Severe Rash Verified 12/16/17 17:01 diatrizoate meglumine Allergy Severe SWELLS UP Verified 12/16/17 17:01 AND RASH fentanyl Allergy Severe Hypotension Verified 12/16/17 17:01 gadobenic acid Allergy Severe SWELLS UP Verified 12/16/17 17:01 AND RASH gadodiamide Allergy Severe SWELLS UP Verified 12/16/17 17:01 AND RASH gadoteridol Allergy Severe SWELLS UP Verified 12/16/17 17:01 AND RASH iodine Allergy Severe Rash Verified 12/16/17 17:01 iodixanol Allergy Severe SWELLS UP Verified 12/16/17 17:01 AND RASH iohexol Allergy Severe SWELLS UP Verified 12/16/17 17:01 AND RASH milnacipran Allergy Severe Rash Verified 12/16/17 17:01 nitrofurantoin Allergy Severe Hives Verified 12/16/17 17:01 potassium iodide Allergy Severe Rash Verified 12/16/17 17:01 povidone-iodine Allergy Severe Rash Verified 12/16/17 17:01 sodium iodide Allergy Severe Rash Verified 12/16/17 17:01 sodium iodide Allergy Severe Rash Verified 12/16/17 17:01 zolpidem Allergy Severe Hallucinati Verified 12/16/17 17:01 ons *MDRO Multi-Drug Resistant AdvReac Unknown unknown Uncoded 11/13/17 11:15 Organism Home Medications Medication Instructions Recorded Confirmed Type Bacillus coagulans [Digestive 2 cap PO DAILY 11/11/17 12/24/17 History Advantage] hydromorphone 4 mg PO Q6H PRN 11/11/17 12/24/17 History ondansetron 8 mg PO BID PRN 11/11/17 12/24/17 History pantoprazole 40 mg PO DAILY 11/11/17 12/24/17 History prednisone 7 mg PO DAILY 11/11/17 12/24/17 History lisinopril 5 mg PO DAILY 12/16/17 12/24/17 History nitroglycerin 0.4 mg SUBLINGUAL Q5-15M PRN 12/16/17 12/24/17 History Physical Exam Vital signs: Vital Signs 12/24/17 11:36 12/24/17 15:00 12/24/17 17:00 Temperature 98.1 F Pulse Rate 96 H 86 91 H Respiratory Rate 17 15 17 Blood Pressure 143/79 H 138/65 150/70 H Pulse Oximetry 98 98 96 12/24/17 19:02 12/24/17 20:14 12/25/17 06:00 Temperature 98.1 F 98.1 F 98.1 F Pulse Rate 95 H 95 H 90 Respiratory Rate 18 18 18 Blood Pressure 126/60 126/60 166/74 H Pulse Oximetry 94 L 94 L 91 L Intake & Output 12/24/17 12/25/17 12/25/17 18:59 06:59 18:59 Intake Total 1000 / 1000 1000 / 1000 Balance 1000 / 1000 1000 / 1000 Weight 59.874 kg 59.421 kg Intake: IV 1000 / 1000 1000 / 1000 LR 1000 mL Inj 1,000 ML @ 125 1000 / 1000 1000 / 1000 mls/hr IV.CONT .Q8H [facility] Rx#: [id number] Other: Weight On Admission 59.421 kg Narrative: GENERAL: Well-nourished, well-developed elderly female in no acute distress. SKIN: Warm and dry. Small scattered bilateral lower arm ecchymotic areas, no open wounds. HEAD: Atraumatic. Normocephalic. EYES: Pupils equal and round. No scleral icterus. No injection or drainage. ENT: No nasal bleeding or discharge. Mucous membranes pink and moist. NECK: Trachea midline. No JVD. CARDIOVASCULAR: Regular rate and rhythm. RESPIRATORY: No accessory muscle use. Clear to auscultation. Breath sounds equal bilaterally. GASTROINTESTINAL: Abdomen soft, non-tender, nondistended. + Bowel sounds MUSCULOSKELETAL: Extremities without clubbing, cyanosis, or edema. No obvious deformities. NEUROLOGICAL: Awake, alert, oriented x3. No obvious cranial nerve deficits. Motor grossly within normal limits. Five out of 5 muscle strength in the arms and legs. Normal speech. PSYCHIATRIC: Appropriate mood and affect; insight and judgment normal. Results - Labs CBC & Chem 7: 12/24/17 11:50 12/25/17 07:17 Labs: Laboratory Results - last 24 hr 12/24/17 12/24/17 12/24/17 11:50 11:50 11:50 WBC 7.1 RBC 4.33 Hgb 12.9 Hct 38.3 MCV 88.3 MCH 29.8 MCHC 33.7 RDW 14.6 Plt Count 173 D MPV 9.1 Neut % (Auto) 67.9 Lymph % (Auto) 20.5 Wilkinson % (Auto) 7.9 Eos % (Auto) 2.8 Baso % (Auto) 0.9 Neut # (Auto) 4.8 Lymph # (Auto) 1.5 Wilkinson # (Auto) 0.6 Eos # (Auto) 0.2 Baso # (Auto) 0.1 WBC Differential . Differential Comment Auto diff final Sodium 146 H Potassium 3.6 Chloride 110 H Carbon Dioxide 30.7 Anion Gap 5 BUN 21 H Creatinine 1.31 H Estimated GFR 40 L Random Glucose 87 Calcium 9.0 Magnesium 1.9 Total Bilirubin 0.5 AST 32 ALT 18 Alkaline Phosphatase 54 Total Protein 6.5 Albumin 3.4 Triglycerides Cholesterol LDL Cholesterol, Calc HDL Cholesterol Cholesterol/HDL Ratio Salicylates Less than 1.7 L Acetaminophen Less than 2.0 L Serum Alcohol Less than 3 12/25/17 07:17 WBC RBC Hgb Hct MCV MCH MCHC RDW Plt Count MPV Neut % (Auto) Lymph % (Auto) Wilkinson % (Auto) Eos % (Auto) Baso % (Auto) Neut # (Auto) Lymph # (Auto) Wilkinson # (Auto) Eos # (Auto) Baso # (Auto) WBC Differential Differential Comment Sodium 145 Potassium 3.2 L Chloride 107 Carbon Dioxide 29.8 Anion Gap 8 BUN 14 Creatinine 0.88 Estimated GFR 63 L Random Glucose 92 Calcium 8.3 L Magnesium Total Bilirubin AST ALT Alkaline Phosphatase Total Protein Albumin Triglycerides 98 Cholesterol 187 LDL Cholesterol, Calc 114 H HDL Cholesterol 53.8 Cholesterol/HDL Ratio 3.47 Salicylates Acetaminophen Serum Alcohol - Imaging Impressions Chest X-Ray 12/24/17 11:42 CONCLUSION: No acute cardiopulmonary disease identified. Assessment and Plan - Plan 72-year-old female with past medical history significant for HTN, GERD , fibromyalgia, polymyalgia rheumatica, chronic back pain, gastric ulcers, interstitial cystitis, frequent UTIs, and osteoporosis who presented to the emergency department under a Ramirez act. Patient apparently took extra dose of oral Dilaudid which he uses for chronic pain due to suicidal ideation. She has been admitted to medical psychiatry department and [facility] consulted for management of multiple medical issues. Suicidal ideation Intentional overdose -Patient took a total of 8 mg of Dilaudid and 2 pills of Lunesta. Patient remained hemodynamically stable as well as alert and oriented on admission. -Treatment plan per primary team Probable C. difficile colitis -Recently tested on 12/[address] of abdomen/pelvis completed was negative -We will continue oral vancomycin due to ongoing symptoms, contact isolation -Continue probiotic, continue IV fluids for hydration Dysuria -Patient with a history of frequent UTIs, check UA Hypokalemia, mild, acute -Likely secondary to diarrhea -Replace with KCl p.o., recheck BMP tomorrow Acute kidney injury -Likely secondary to dehydration from diarrhea -Recheck BMP improved, continue IV fluids Chronic back pain -Continue home dose prednisone, continue Dilaudid at 2 mg every 6 hours as needed DVT prophylaxisambulation Thank you Dr. Clayton for this consultation, will continue to follow along. Discussed Condition With: Patient and RN
[2017-12-25] MEDS ORDERED: LORazepam 0.5 MG Tablet PO PRN (09:48)
[2017-12-25] MEDS: Lisinopril 5 MG Tablet PO SCH (10:19)
[2017-12-25] MEDS: predniSONE 5 MG Tablet PO SCH (10:40)
[2017-12-25] MEDS: predniSONE 1 MG Tablet PO SCH (10:44)
[2017-12-25] MEDS: Sertraline 50 MG Tablet PO SCH (11:57)
[2017-12-25 14:19] LABS: Bilirubin,Urine Negative (Negative); Clarity,Urine Clear (Clear); Color,Urine Yellow (Yellw/Straw); Glucose,Urine (UA) Negative (Negative); Leukocyte Esterase,Urine Negative (Negative); Mucus,Urine Few /lpf (Occasional); Nitrite,Urine Negative (Negative); Squamous Epithelial Cell,Urine <1 /hpf (0-5)
--- NOTE | 2017-12-25 14:42 | ECG ---
Date Performed: 12/24/2017 Time Performed: 11:41:01 PTAGE: 72 years EKG: Sinus rhythm NORMAL ECG Since the PREVIOUS TRACING , no significant change noted PREVIOUS TRACIN11/18/2014 10.31 DOCTOR: Bety Ibrahim Interpretating Date/Time 12/25/2017 14:31:29
[2017-12-25 14:45] LABS: Hemoglobin A1c 5.2 % (4.3-6.0)
--- NOTE | 2017-12-25 16:00 | P.HPPSY ---
Provisional Diagnosis Admission Date: December 24, 2017 17:05 [place] I.: Major depressive disorder Competence Certification of Person's Competence To Provide Express and Informed Consent I have personally examined Meghan Jefferson, a person being served at [facility] on, December 25, 2017 1552. Express and informed consent means consent voluntarily given in writing, by a competent person, after sufficient explanation and disclosure of the subject matter involved to enable the person to make a knowing and willful decision without any element of force, fraud, deceit, duress, or other form of constraint or coercion. This person is 18 years of age or older, is not now known to be incompetent to consent to treatment with a guardian advocate, and does not have a health care surrogate or proxy currently making medical treatment decisions. I have found this person to be one of the following: [xxx] Competent to provide express and informed consent, as defined above, for voluntary admission to this facility and is competent to provide express and informed consent for treatment. He/she has the consistent capacity to make well reasoned, willful, and knowing decisions concerning his or her medical or mental health treatment. The person fully and consistently understands the purpose of the admission for examination/placement and is fully capable of personally exercising all rights assured under [place] [] Incompetent to provide express and informed consent to voluntary admission, and this is incompetent to provide express and informed consent to treatment. The person must be transferred to involuntary status and a petition for a guardian advocate filed with the Circuit Court. [] Refusing to provide express and informed consent to voluntary admission but is competent to provide express and informed consent for treatment. The person must be discharged or transferred to involuntary status. Form shall be completed within 24 hours of a person's arrival at the receiving facility and filed in the clinical record of each person: 1. Admitted on a voluntary basis 2. Permitted to provide express and informed consent to his/her own treatment 3. Allowed to transfer from involuntary to voluntary status 4. Prior to permitting a person to consent to his or her own treatment after having been previously found incompetent to consent to treatment. History of Present Illness Capacity: Has capacity History of Present Illness: Patient is a 72-year-old woman, , domiciled with , retired, has 4 children, with a past psychiatric history of depression, denies previous psychiatric admissions denies any previous suicide attempt or self- injurious behavior, with no substance use history, with a past medical history significant for fibromyalgia, hypertension, GERD, chronic back pain, polymyalgia rheumatica, esophageal stricture, who was brought in by EMS under Ramirez act after suicide attempt via overdose which patient was admitted to the inpatient psychiatry unit for further evaluation and management. Patient was found sitting in hospital chair noted B, cooperative, tearful at times. Patient states that she did not recall much details of her recent overdose initially denying having had a suicide attempt but later admitting that perhaps she might have intentionally overdosed. Currently she denies any suicide ideations stating "I have too much to live for". Patient patient recalls having taken too many pills "because I was in pain". Patient states that she wanted the pain go away and go to sleep. Patient states "I do not remember saying I wanted to ", and states that she does not know why she took so much. Patient reports having difficulty with sleep even prior to this event, reports her mood has been okay denying feeling depressed prior to the overdose but stating that she has been worried about her granddaughter going to [place] as she is in the . She also reports decreased appetite concentration and energy, denies feeling helpless or hopeless, but states having had losses such as her granddaughter having in 2008 and states that she misses her. Currently patient reports her mood is being "good" denying any suicide ideation at this time denying any perceptional services or delusions. Family psychiatric history: Denies Past psychiatric history: Previous psychiatric diagnosis of depression, denies any previous psychiatric admissions, suicide attempts of interest behavior. Patient denies any history of abuse. Patient reports having seen a psychiatrist 52 years ago and treated for depression at that time, denies any medication trials. Substance use history: Denies Past medical history: ibromyalgia, hypertension, GERD, chronic back pain, polymyalgia rheumatica, esophageal stricture Allergies: Multiple allergies see chart. Social history: , domiciled with , retired, has 4 children, has 4 grandchildren. - Inpatient Certification I certify that the inpatient services were ordered in accordance with Medicare regulations governing the order. This includes certification that hospital inpatient services are reasonable and necessary and in the case of services not specified as inpatient-only under 42 CFR 419.22(n), that they are appropriately provided as inpatient services in accordance to with the 2-midnight benchmark under 43 CFR 412.3(e) I certify that inpatient psychiatric hospital services are medically necessary. Evaluation and treatment and/or diagnostic testing are expected to improve the patient's condition. The patient needs on a daily basis, active treatment furnished directly by or requiring the supervision of inpatient psychiatric facility personnel. Estimated Total Length of Stay (Days): 7 Plans for Post Hospital Care: Not yet determined Review of Systems All other systems reviewed negative except as stated in HPI [facility] - History History Provided By: Patient, Medical Record - Medical History Medical History: Medical History (Last Reviewed 12/24/17 @ 18:48 by LE Garcia) Esophageal stricture Fibromyalgia GERD (gastroesophageal reflux disease) Gastric ulcer Hypertension Interstitial cystitis Osteoporosis Polymyalgia rheumatica Recurrent UTI - Surgical History Surgical History: Surgical History (Last Reviewed 12/24/17 @ 18:48 by LE Garcia) Hx of appendectomy Hx of tonsillectomy - Family History Family History: Family History (Last Reviewed 12/24/17 @ 11:53 by Bry Suárez DO) Other Family history non-contributory - Tobacco History Second Hand Smoke Exposure: No Smoking Status: Never smoker - Alcohol History How Often Do You Have a Drink Containing Alcohol: Never - Substance Use History Substance History: No History of Abuse - Travel History Recent Travel in the [place] Within the Last 8 Weeks: No Recent Travel Out of the Country Within the Last 8 Weeks: No - Immunization History Tetanus Immunization: <5 Years Hx Influenza Vaccine This Season: Yes Quality Measures - Psychiatric History Psychological trauma history: Denies Violence risk to others in the last 6 months: Low Violence risk to self in the last 6 months: Elevated due to recent suicide attempt. - Substance Abuse History Drug or alcohol use in the past 12 months: Denies - Patient Strengths Patient's strengths (minimum of 2): Verbal and communicative Medications and Allergies Active Medications: Active Medications Acetaminophen (Tylenol) 650 mg PO Q4H PRN PRN Reason: Pain 1-5 or Temp >101F Al Hydrox/Mg Hydrox/Simethicone (Mag-Al Plus Susp Liq) 30 ml PO Q6H PRN PRN Reason: DYSPEPSIA Al Hydroxide/Mg Hydroxide (Milk Of Magnesia Liq) 30 ml PO Q12H PRN PRN Reason: Mild Constipation Hydromorphone HCl (Dilaudid) 2 mg PO Q6H PRN PRN Reason: Pain 6-10 Last Admin: 12/25/17 11:31 Dose: 2 mg Lactated Ringer's (Lr 1000 Ml Inj) 1,000 mls @ 100 mls/hr IV.CONT .Q10H [facility] Last Admin: 12/25/17 11:31 Dose: 100 mls/hr Lisinopril (Prinivil) 5 mg PO DAILY [facility] Last Admin: 12/25/17 10:19 Dose: 5 mg Lorazepam (Ativan) 0.5 mg PO Q12H PRN PRN Reason: ANXIETY Miscellaneous (Pill Splitter) 1 each OTHER UNSCH PRN PRN Reason: PILL SPLITTING Nitroglycerin (Nitrostat Sl) 0.4 mg SL Q5M PRN PRN Reason: CHEST PAIN Pantoprazole Sodium (Protonix) 40 mg PO DAILY [facility] Last Admin: 12/25/17 10:37 Dose: 40 mg Phenazopyridine HCl (Pyridium) 100 mg PO Q8H [facility] Stop: 12/28/17 14:59 Prednisone (Deltasone) 5 mg PO DAILY [facility] Last Admin: 12/25/17 10:40 Dose: 5 mg Prednisone (Deltasone) 2 mg PO DAILY [facility] Last Admin: 12/25/17 10:44 Dose: 2 mg Sertraline HCl (Zoloft) 25 mg PO DAILY [facility] Last Admin: 12/25/17 11:57 Dose: 25 mg Trazodone HCl (Desyrel) [address] [facility] Vancomycin HCl (Vancomycin Po) 125 mg PO QID [facility] Last Admin: 12/25/17 14:07 Dose: 125 mg Allergies Allergy/AdvReac Type Severity Reaction Status Date / Time ceftriaxone Allergy Severe Rash Verified 12/16/17 17:01 diatrizoate meglumine Allergy Severe SWELLS UP Verified 12/16/17 17:01 AND RASH fentanyl Allergy Severe Hypotension Verified 12/16/17 17:01 gadobenic acid Allergy Severe SWELLS UP Verified 12/16/17 17:01 AND RASH gadodiamide Allergy Severe SWELLS UP Verified 12/16/17 17:01 AND RASH gadoteridol Allergy Severe SWELLS UP Verified 12/16/17 17:01 AND RASH iodine Allergy Severe Rash Verified 12/16/17 17:01 iodixanol Allergy Severe SWELLS UP Verified 12/16/17 17:01 AND RASH iohexol Allergy Severe SWELLS UP Verified 12/16/17 17:01 AND RASH milnacipran Allergy Severe Rash Verified 12/16/17 17:01 nitrofurantoin Allergy Severe Hives Verified 12/16/17 17:01 potassium iodide Allergy Severe Rash Verified 12/16/17 17:01 povidone-iodine Allergy Severe Rash Verified 12/16/17 17:01 sodium iodide Allergy Severe Rash Verified 12/16/17 17:01 sodium iodide Allergy Severe Rash Verified 12/16/17 17:01 zolpidem Allergy Severe Hallucinati Verified 12/16/17 17:01 ons *MDRO Multi-Drug Resistant AdvReac Unknown unknown Uncoded 11/13/17 11:15 Organism Home Medications Medication Instructions Recorded Confirmed Type Bacillus coagulans [Digestive 2 cap PO DAILY 11/11/17 12/24/17 History Advantage] hydromorphone 4 mg PO Q6H PRN 11/11/17 12/24/17 History ondansetron 8 mg PO BID PRN 11/11/17 12/24/17 History pantoprazole 40 mg PO DAILY 11/11/17 12/24/17 History prednisone 7 mg PO DAILY 11/11/17 12/24/17 History lisinopril 5 mg PO DAILY 12/16/17 12/24/17 History nitroglycerin 0.4 mg SUBLINGUAL Q5-15M PRN 12/16/17 12/24/17 History Results - Labs CBC & Chem 7: 12/24/17 11:50 12/25/17 07:17 Labs: Laboratory Results - last 24 hr 12/25/17 12/25/17 07:17 13:47 Sodium 145 Potassium 3.2 L Chloride 107 Carbon Dioxide 29.8 Anion Gap 8 BUN 14 Creatinine 0.88 Estimated GFR 63 L Random Glucose 92 Calcium 8.3 L Triglycerides 98 Cholesterol 187 LDL Cholesterol, Calc 114 H HDL Cholesterol 53.8 Cholesterol/HDL Ratio 3.47 Urine Color Yellow Urine Clarity Clear Urine pH 7.0 Ur Specific [place] 1.010 Urine Protein Negative Urine Glucose (UA) Negative Urine Ketones 20 Urine Occult Blood Negative Urine Nitrate Negative Urine Bilirubin Negative Urine Urobilinogen Less than 2 Ur Leukocyte Esterase Negative Urine RBC 1 Urine WBC 2 Ur Squamous Epith Cells <1 Urine Mucus Few H Micro UA Comment Culture not ind Ur Microscopic Review Not Reportable Urine Culture Comments Culture not ind Exam Vital signs: Vital Signs 12/24/17 17:00 12/24/17 19:02 12/24/17 20:14 Temperature 98.1 F 98.1 F Pulse Rate 91 H 95 H 95 H Respiratory Rate 17 18 18 Blood Pressure 150/70 H 126/60 126/60 Pulse Oximetry 96 94 L 94 L 12/25/17 06:00 12/25/17 07:15 Temperature 98.1 F Pulse Rate 90 87 Respiratory Rate 18 17 Blood Pressure 166/74 H 132/99 H Pulse Oximetry 91 L 98 Intake & Output 12/24/17 12/25/17 12/25/17 18:59 06:59 18:59 Intake Total 1000 / 1000 1000 / 1000 Balance 1000 / 1000 1000 / 1000 Weight 59.874 kg 59.421 kg Intake: IV 1000 / 1000 1000 / 1000 LR 1000 mL Inj 1,000 ML @ 125 1000 / 1000 1000 / 1000 mls/hr IV.CONT .Q8H [facility] Rx#: [id number] Other: Date of Last Bowel Movement 12/25/17 Weight On Admission 59.421 kg Narrative: Patient not noted to be in acute distress, no gross motor abnormalities, no signs of tremor or EPS, no psychomotor agitation or retardation. - Constitutional no acute distress, cooperative Mental Status Examination Appearance: Appropriate Consciousness: Alert Orientation: x4 Motor Activity: Normal gait Speech: Unremarkable Language: Adequate Fund of Knowledge: Adequate Attention and Concentration: Adequate Memory: Unremarkable Mood: Sad Affect: Sad, Other (Tearful at times) Thought Process & Associations: Intact, Linear, Tangential Thought Content: Appropriate Hallucination Type: None Delusion Type: None Suicidal Ideation: Yes (Denies at this time) Suicidal Plan: No Suicidal Intention: No Homicidal Ideation: No Homicidal Plan: No Homicidal Intention: No Insight: Fair Judgment: Impulsive Assessment and Plan - Assessment (1) Major depressive disorder Code(s): F32.9 - Major depressive disorder, single episode, unspecified Status : Acute - Plan Plan: Patient is a 72-year-old woman with a history of depression, no previous psychiatric admissions, previous suicide attempts or self-injurious behavior with multiple chronic medical illnesses who presented to the ER by EMS after a suicide attempt via overdose in the context of worsening chronic pain. Patient noted to have depressive symptoms and likely intentional suicide attempt although patient denies. We will start patient on sertraline 25 mg p.o. daily for depression, trazodone 25 mg p.o. at bedtime for insomnia with upper titration as needed. Collateral formation pending from patient's . Patient agrees to voluntary admission has capacity to consent for treatment. We will continue to monitor mood and behavior. Hospitalist input appreciated. Discharge planning in progress. Justification for Continued Inpatient Stay: At risk of further decompensation at lower level care. (1) Major depressive disorder Qualifiers: Major depression recurrence: single episode Active/Remission status: currently active Major depression episode severity: severe Psychotic features : without psychotic features Qualified Code(s): F32.2 - Major depressive disorder, single episode, severe without psychotic features
[2017-12-25] MEDS: traZODone 50 MG Tablet PO SCH (20:09)
[2017-12-26] MEDS: predniSONE 1 MG Tablet PO SCH (08:20)
[2017-12-26] MEDS: predniSONE 5 MG Tablet PO SCH (08:20)
[2017-12-26] MEDS: Sertraline 50 MG Tablet PO SCH (08:20)
--- NOTE | 2017-12-26 08:35 | P.PN ---
Subjective Interval history: Follow-up visit for diarrhea and CVA pain. Patient seen and examined this morning in bed, reports she is not feeling well today. Complains of nausea and vomiting twice this morning, did not have much for breakfast either. Ongoing liquid stools, states she had about 8 bowel movements yesterday. Denies any abdominal pain or tenderness. Continues to complain of bilateral lower back pain. Reports she is urinating without any difficulties. No fevers, chills, cough, shortness of breath or chest pain. Physical Exam Vital signs: Vital Signs 12/26/17 05:54 Temperature 97.9 F Pulse Rate 79 Respiratory Rate 18 Blood Pressure 163/71 H Pulse Oximetry 95 Intake & Output 12/25/17 12/26/17 12/26/17 18:59 06:59 18:59 Intake Total 1999 Balance 1999 Intake: IV 1999 LR 1000 mL Inj 1,000 ML @ 100 1999 mls/hr IV.CONT .Q10H [facility] Rx#: [id number] Other: Date of Last Bowel Movement 12/25/17 Narrative: GENERAL: Well-nourished, well-developed elderly female in no acute distress. SKIN: Warm and dry. Small scattered bilateral lower arm ecchymotic areas, no open wounds. HEAD: Atraumatic. Normocephalic. EYES: Pupils equal and round. No scleral icterus. No injection or drainage. ENT: No nasal bleeding or discharge. Mucous membranes pink and moist. NECK: Trachea midline. No JVD. CARDIOVASCULAR: Regular rate and rhythm. RESPIRATORY: No accessory muscle use. Clear to auscultation. Breath sounds equal bilaterally. GASTROINTESTINAL: Abdomen soft, non-tender, nondistended. + Bowel sounds MUSCULOSKELETAL: Extremities without clubbing, cyanosis, or edema. No obvious deformities. Bilateral CVA tenderness. NEUROLOGICAL: Awake, alert, oriented x3. No obvious cranial nerve deficits. Motor grossly within normal limits. Normal speech. PSYCHIATRIC: Appropriate mood and affect; insight and judgment normal. Results - Labs CBC & Chem 7: 12/24/17 11:50 12/26/17 07:48 Laboratory Results - last 24 hr 12/25/17 12/25/17 12/25/17 07:17 07:17 13:47 Sodium 145 Potassium 3.2 L Chloride 107 Carbon Dioxide 29.8 Anion Gap 8 BUN 14 Creatinine 0.88 Estimated GFR 63 L Random Glucose 92 Hemoglobin A1c 5.2 Calcium 8.3 L Triglycerides 98 Cholesterol 187 LDL Cholesterol, Calc 114 H HDL Cholesterol 53.8 Cholesterol/HDL Ratio 3.47 Urine Color Yellow Urine Clarity Clear Urine pH 7.0 Ur Specific [place] 1.010 Urine Protein Negative Urine Glucose (UA) Negative Urine Ketones 20 Urine Occult Blood Negative Urine Nitrate Negative Urine Bilirubin Negative Urine Urobilinogen Less than 2 Ur Leukocyte Esterase Negative Urine RBC 1 Urine WBC 2 Ur Squamous Epith Cells <1 Urine Mucus Few H Micro UA Comment Culture not ind Ur Microscopic Review Not Reportable Urine Culture Comments Culture not ind Assessment and Plan - Plan 72-year-old female with past medical history significant for HTN, GERD , fibromyalgia, polymyalgia rheumatica, chronic back pain, gastric ulcers, interstitial cystitis, frequent UTIs, and osteoporosis who presented to the emergency department under a Ramirez act. Patient apparently took extra dose of oral Dilaudid which he uses for chronic pain due to suicidal ideation. She has been admitted to medical psychiatry department and [facility] consulted for management of multiple medical issues. Suicidal ideation Intentional overdose -Patient took a total of 8 mg of Dilaudid and 2 pills of Lunesta. Patient remained hemodynamically stable as well as alert and oriented on admission. -Treatment plan per primary team Probable C. difficile colitis -Recently tested on 12/[address] of abdomen/pelvis completed was negative fro acute process. -Continue oral vancomycin due to ongoing symptoms, contact isolation, start Questran and antiemetics as needed. -Continue probiotic, continue IV fluids for hydration Dysuria -Patient with a history of frequent UTIs, check UA Hypokalemia, mild, acute -Likely secondary to diarrhea -Replace once again orally, recheck tomorrow along with mag. Acute kidney injury -Likely secondary to dehydration from diarrhea -Recheck BMP improved, continue IV fluids Chronic back pain -Continue home dose prednisone, continue Dilaudid at 2 mg every 6 hours as needed - UA negative, renal US as noted below Renal calculi -Recent CT completed on 12/16 noted bilateral small nonobstructing renal calculi. 2 on the right measuring 3 mm with one measuring 3-4 mm in size, no urethral calculi. -Kidney/renal/bladder ultrasound done today noted multiple multiple peripelvic cyst as well as dilation of the left renal collecting system which extends into the adjacent calyces concerning for significant hydronephrosis. Concerns for UPJ obstruction. -Start Flomax, Toradol and consult urology for further recommendations, appreciate assistance. DVT prophylaxisambulation Discussed Condition With: Patient, RN and
[2017-12-26 08:37] LABS: Calcium 8.1 mg/dL (8.5-10.1); Carbon Dioxide 28.8 meq/L (21.0-32.0); Potassium 3.3 meq/L (3.5-5.1)
[2017-12-26] MEDS: Lisinopril 5 MG Tablet PO SCH (09:27)
--- NOTE | 2017-12-26 11:28 | US ---
EXAM DATE: 12/26/2017 11:03 AM EST AGE/SEX: 72 years / Female INDICATIONS: Hydronephrosis. CLINICAL DATA: This is the patient's initial encounter. Patient reports that signs and symptoms have been present for 1 day and indicates a pain score of 0/10. MEDICAL/SURGICAL HISTORY: . Esophageal stricture. Fibromyalgia. Gastric ulcer. GERD. Hypert ension. Interstitial cystitis. Osteoporosis. Polymyalgia rheumatic. Recurrent urinary tract infec tion. . Appendectomy. Tonsillectomy. COMPARISON: [facility], CT ABDOMEN & PELVIS W/O CONTRAST, 12/16/2017. [facility], CT ABDOMEN AND PELVIS W/O CO NTRAST, 06/16/2017. . MEASUREMENTS: Right Kidney:__11.3 x 5.2 x 4.5 cm Left Kidney:__11.3 x 4.4 x 5.0 cm FINDINGS: Right Kidney: The renal cortex is normal in echotexture and appropriate thickness for the patient's a ge. Multiple peripelvic cysts are noted. No evidence of concerning mass or visible stones. Left Kidney: There are multiple peripelvic cysts as well as dilation of the left renal collecting sys tem which extends into the adjacent calyces concerning for significant hydronephrosis. Given the CT a ppearance this may represent a UPJ obstruction. Bladder: Within normal limits given the degree of distension. Other: None. CONCLUSION: 1. Concern for left UPJ obstruction given the appearance of hydronephrosis. This does not appear to represent peripelvic cysts on ultrasound. Recommend confirmation with CT urogram. Electronically signed by: Millicent Griffin MD 12/26/2017 11:27 AM EST
[2017-12-26] MEDS: Ketorolac Inj 30 MG/ML (IVP) Vial IV.PUSH SCH ×2 (14:41→20:34)
--- NOTE | 2017-12-26 15:01 | P.CONURO ---
History of Present Illness Service: urology Consult date: 12/26/17 Reason for Consult: Left hydronephrosis Primary Care Provider: Corky Mendiola MD Chief Complaint: BA for OD History of Present Illness: 72yo female admitted for suicidal ideations under BA seen in consultation for flank pain and concern for possible UPJ obstruction. Patient has been evaluated by ultrasound and CT scan in the past with evidence of parapelvic cysts. No stones identified. However she continues to have flank pain and recent imaging raises concern for possible hydronephrosis and obstruction. No fevers. No N/V. Review of Systems All other systems reviewed negative except as stated in HPI PMFSH - History History Provided By: Patient, Medical Record - Medical History Medical History: Medical History (Last Reviewed 12/24/17 @ 18:48 by LE Garcia) Esophageal stricture Fibromyalgia GERD (gastroesophageal reflux disease) Gastric ulcer Hypertension Interstitial cystitis Osteoporosis Polymyalgia rheumatica Recurrent UTI - Surgical History Surgical History: Surgical History (Last Reviewed 12/24/17 @ 18:48 by LE Garcia) Hx of appendectomy Hx of tonsillectomy - Family History Family History: Family History (Last Reviewed 12/24/17 @ 11:53 by Bry Suárez DO) Other Family history non-contributory - Tobacco History Second Hand Smoke Exposure: No Smoking Status: Never smoker - Alcohol History How Often Do You Have a Drink Containing Alcohol: Never - Substance Use History Substance History: No History of Abuse - Travel History Recent Travel in the [place] Within the Last 8 Weeks: No Recent Travel Out of the Country Within the Last 8 Weeks: No - Immunization History Tetanus Immunization: <5 Years Hx Influenza Vaccine This Season: Yes Medications and Allergies Active Medications: Active Medications Acetaminophen (Tylenol) 650 mg PO Q4H PRN PRN Reason: Pain 1-5 or Temp >101F Al Hydrox/Mg Hydrox/Simethicone (Mag-Al Plus Susp Liq) 30 ml PO Q6H PRN PRN Reason: DYSPEPSIA Al Hydroxide/Mg Hydroxide (Milk Of Magnesia Liq) 30 ml PO Q12H PRN PRN Reason: Mild Constipation Cholestyramine Resin (Questran 4 Gm Pkt) 4 gm PO DAILY [facility] Last Admin: 12/26/17 12:47 Dose: 4 gm Hydromorphone HCl (Dilaudid) 2 mg PO Q6H PRN PRN Reason: Pain 6-10 Last Admin: 12/26/17 12:25 Dose: 2 mg Lactated Ringer's (Lr 1000 Ml Inj) 1,000 mls @ 100 mls/hr IV.CONT .Q10H [facility] Last Admin: 12/26/17 05:10 Dose: Not Given Ketorolac Tromethamine (Toradol Inj) 15 mg IV.PUSH Q6H [facility] Stop: 12/29/17 13:59 Last Admin: 12/26/17 14:41 Dose: 15 mg Lisinopril (Prinivil) 5 mg PO DAILY [facility] Last Admin: 12/26/17 09:27 Dose: 5 mg Lorazepam (Ativan) 0.5 mg PO Q12H PRN PRN Reason: ANXIETY Miscellaneous (Pill Splitter) 1 each OTHER UNSCH PRN PRN Reason: PILL SPLITTING Nitroglycerin (Nitrostat Sl) 0.4 mg SL Q5M PRN PRN Reason: CHEST PAIN Ondansetron HCl (Zofran Inj) 4 mg IV.PUSH Q6H PRN PRN Reason: NAUSEA OR VOMITING Last Admin: 12/26/17 08:28 Dose: 4 mg Pantoprazole Sodium (Protonix) 40 mg PO DAILY [facility] Last Admin: 12/26/17 08:19 Dose: 40 mg Phenazopyridine HCl (Pyridium) 100 mg PO Q8H [facility] Stop: 12/28/17 14:59 Last Admin: 12/26/17 14:44 Dose: 100 mg Prednisone (Deltasone) 5 mg PO DAILY [facility] Last Admin: 12/26/17 08:20 Dose: 5 mg Prednisone (Deltasone) 2 mg PO DAILY [facility] Last Admin: 12/26/17 08:20 Dose: 2 mg Sertraline HCl (Zoloft) 25 mg PO DAILY [facility] Last Admin: 12/26/17 08:20 Dose: 25 mg Tamsulosin HCl (Flomax) 0.4 mg PO DAILY [facility] Last Admin: 12/26/17 12:57 Dose: 0.4 mg Trazodone HCl (Desyrel) 25 mg PO HS [facility] Last Admin: 12/25/17 20:09 Dose: 25 mg Vancomycin HCl (Vancomycin Po) 125 mg PO QID [facility] Last Admin: 12/26/17 12:25 Dose: 125 mg Allergies Allergy/AdvReac Type Severity Reaction Status Date / Time ceftriaxone Allergy Severe Rash Verified 12/16/17 17:01 diatrizoate meglumine Allergy Severe SWELLS UP Verified 12/16/17 17:01 AND RASH fentanyl Allergy Severe Hypotension Verified 12/16/17 17:01 gadobenic acid Allergy Severe SWELLS UP Verified 12/16/17 17:01 AND RASH gadodiamide Allergy Severe SWELLS UP Verified 12/16/17 17:01 AND RASH gadoteridol Allergy Severe SWELLS UP Verified 12/16/17 17:01 AND RASH iodine Allergy Severe Rash Verified 12/16/17 17:01 iodixanol Allergy Severe SWELLS UP Verified 12/16/17 17:01 AND RASH iohexol Allergy Severe SWELLS UP Verified 12/16/17 17:01 AND RASH milnacipran Allergy Severe Rash Verified 12/16/17 17:01 nitrofurantoin Allergy Severe Hives Verified 12/16/17 17:01 potassium iodide Allergy Severe Rash Verified 12/16/17 17:01 povidone-iodine Allergy Severe Rash Verified 12/16/17 17:01 sodium iodide Allergy Severe Rash Verified 12/16/17 17:01 sodium iodide Allergy Severe Rash Verified 12/16/17 17:01 zolpidem Allergy Severe Hallucinati Verified 12/16/17 17:01 ons *MDRO Multi-Drug Resistant AdvReac Unknown unknown Uncoded 11/13/17 11:15 Organism Home Medications Medication Instructions Recorded Confirmed Type Bacillus coagulans [Digestive 2 cap PO DAILY 11/11/17 12/24/17 History Advantage] hydromorphone 4 mg PO Q6H PRN 11/11/17 12/24/17 History ondansetron 8 mg PO BID PRN 11/11/17 12/24/17 History pantoprazole 40 mg PO DAILY 11/11/17 12/24/17 History prednisone 7 mg PO DAILY 11/11/17 12/24/17 History lisinopril 5 mg PO DAILY 12/16/17 12/24/17 History nitroglycerin 0.4 mg SUBLINGUAL Q5-15M PRN 12/16/17 12/24/17 History Physical Exam Vital Signs - 24 hr 12/26/17 05:54 Temperature 97.9 F Pulse Rate 79 Respiratory Rate 18 Blood Pressure 163/71 H Pulse Oximetry 95 Physical Exam: GENERAL: This is a well-nourished, well-developed patient, in no apparent distress. SKIN: No rashes, ecchymoses or lesions. Cool and dry. HEAD: Atraumatic. Normocephalic. EYES: Extraocular motions intact. No scleral icterus. No injection or drainage. ENT: Nose without bleeding, purulent drainage NECK: Trachea midline. No JVD or lymphadenopathy. CARDIOVASCULAR: normal pulse. RESPIRATORY: nonlabored GASTROINTESTINAL: Abdomen soft, non-tender, nondistended. MUSCULOSKELETAL: Extremities without clubbing, cyanosis, or edema. NEUROLOGICAL: Awake and alert. Motor and sensory grossly within normal limits. Normal speech. Laboratory Results - last 24 hr 12/25/17 12/26/17 07:17 07:48 Sodium 144 Potassium 3.3 L Chloride 108 H Carbon Dioxide 28.8 Anion Gap 7 BUN 10 Creatinine 0.80 Estimated GFR 70 L Random Glucose 86 Hemoglobin A1c 5.2 Calcium 8.1 L Result Diagrams: 12/24/17 11:50 12/26/17 07:48 Imaging: ITS Impressions Chest X-Ray 12/24/17 11:42 CONCLUSION: No acute cardiopulmonary disease identified. Abdomen/Bladder Ultrasound 12/26/17 00:00 CONCLUSION: 1. Concern for left UPJ obstruction given the appearance of hydronephrosis. This does not appear to represent peripelvic cysts on ultrasound. Recommend confirmation with CT urogram. Assessment and Plan - Assessment (1) Renal insufficiency Code(s): N28.9 - Disorder of kidney and ureter, unspecified Status: Acute (2) Abdominal pain Code(s): R10.9 - Unspecified abdominal pain Status: Acute - Plan -No obvious stones or obstruction -Obtain CT urogram to evaluate collecting system and better characterize any parapelvic cysts vs hydronephrosis -IF this appears normal, we may consider renal scan to evaluate function -Will follow
--- NOTE | 2017-12-26 16:38 | P.PNPSY ---
Subjective Remarks: Pt seen and discussed with staff.Chart reviewed. Pt was admitted for overdose with dilaudid and lunesta. She has been pleasant and cooperative today. She is compliant with medications and tolerating without side effects. No SI/HI Mental Status Examination Appearance: Appropriate Consciousness: Alert Orientation: x4 Motor Activity: Normal gait Speech: Unremarkable Language: Adequate Fund of Knowledge: Adequate Attention and Concentration: Adequate Memory: Unremarkable Mood: Appropriate Affect: Appropriate Thought Process & Associations: Intact, Linear, Tangential Thought Content: Appropriate Hallucination Type: None Delusion Type: None Suicidal Ideation: Yes (Denies at this time) Suicidal Plan: No Suicidal Intention: No Homicidal Ideation: No Homicidal Plan: No Homicidal Intention: No Insight: Adequate Judgment: Impulsive Assessment and Plan - Assessment (1) Major depressive disorder Code(s): F32.9 - Major depressive disorder, single episode, unspecified Status : Acute - Plan Plan: Patient improving. Continue current tx plan. Justification for Continued Inpatient Stay: complicating medical conditions, risks of psychiatric decompensation (1) Major depressive disorder Qualifiers: Major depression recurrence: single episode Active/Remission status: currently active Major depression episode severity: severe Psychotic features : without psychotic features Qualified Code(s): F32.2 - Major depressive disorder, single episode, severe without psychotic features
[2017-12-26] MEDS: traZODone 50 MG Tablet PO SCH (20:35)
[2017-12-27] MEDS: Ketorolac Inj 30 MG/ML (IVP) Vial IV.PUSH SCH ×5 (02:17→20:07)
[2017-12-27 08:10] LABS: Calcium 8.1 mg/dL (8.5-10.1); Carbon Dioxide 27.6 meq/L (21.0-32.0); Magnesium 1.4 mg/dL (1.5-2.5); Potassium 3.3 meq/L (3.5-5.1)
[2017-12-27] MEDS: Sertraline 50 MG Tablet PO SCH (08:19)
[2017-12-27] MEDS: predniSONE 5 MG Tablet PO SCH (08:20)
[2017-12-27] MEDS: Lisinopril 5 MG Tablet PO SCH (08:20)
[2017-12-27] MEDS ORDERED: Ketorolac Inj 30 MG/ML (IVP) Vial IV.PUSH SCH (08:24)
--- NOTE | 2017-12-27 08:24 | P.PN ---
Subjective Interval history: Follow-up visit for diarrhea, back pain, pelvic cyst with possible hydronephrosis. Nurse reports patient was seen by urology this morning, plans for imaging today. Call placed to CT scan, concerns regarding patient's allergy to contrast. Patient is seen and examined sitting up in bed and appears to be in no acute distress. She denies any further diarrhea yesterday or overnight, ongoing nausea with no vomiting today. Patient does report history of esophageal stricture and sees Dr. URIOSTEGUI for this. She denies any fevers, chills, cough, shortness of breath or chest pain. Ongoing back pain, despite the addition of Toradol. Asked patient what her allergy to IV contrast is and reports that when she was giving this she had the sensation of not being able to breathe with generalized swelling. Patient does not know if she required mechanical intubation and ventilation, states that when she received contrast she had to be given any medication for 7 days prior to contrast to avoid reaction. Discussed with nurse, will need to make Dr. Amezcua aware allergy. Physical Exam Vital signs: Vital Signs 12/26/17 16:22 12/26/17 21:26 12/27/17 06:00 Temperature 97.8 F 98.4 F Pulse Rate 73 86 Respiratory Rate Blood Pressure 131/69 143/69 H Pulse Oximetry 97 95 12/27/17 07:58 Temperature Pulse Rate Respiratory Rate 4 L Blood Pressure Pulse Oximetry Intake & Output 12/26/17 12/27/17 12/27/17 18:59 06:59 18:59 Intake Total 2200 / 2200 1000 / 1000 Balance 2200 / 2200 1000 / 1000 Intake: IV 1000 / 1000 1000 / 1000 LR 1000 mL Inj 1,000 ML @ 100 1000 / 1000 1000 / 1000 mls/hr IV.CONT .Q10H [facility] Rx#: [id number] Oral 1200 / 1200 0 / 0 Other: # Voids 3 Date of Last Bowel Movement 12/26/17 # Bowel Movements 0 Narrative: GENERAL: Well-nourished, well-developed elderly female in no acute distress. SKIN: Warm and dry. Small scattered bilateral lower arm ecchymotic areas, no open wounds. HEAD: Atraumatic. Normocephalic. EYES: Pupils equal and round. No scleral icterus. No injection or drainage. ENT: No nasal bleeding or discharge. Mucous membranes pink and moist. NECK: Trachea midline. No JVD. CARDIOVASCULAR: Regular rate and rhythm. RESPIRATORY: No accessory muscle use. Clear to auscultation. Breath sounds equal bilaterally. GASTROINTESTINAL: Abdomen soft, non-tender, nondistended. + Bowel sounds MUSCULOSKELETAL: Extremities without clubbing, cyanosis, or edema. No obvious deformities. Bilateral CVA tenderness. NEUROLOGICAL: Awake, alert, oriented x3. No obvious cranial nerve deficits. Motor grossly within normal limits. Normal speech. PSYCHIATRIC: Appropriate mood and affect; insight and judgment normal. Results - Labs CBC & Chem 7: 12/24/17 11:50 12/27/17 07:18 Laboratory Results - last 24 hr 12/26/17 12/27/17 07:48 07:18 Sodium 144 142 Potassium 3.3 L 3.3 L Chloride 108 H 107 Carbon Dioxide 28.8 27.6 Anion Gap 7 7 BUN 10 10 Creatinine 0.80 0.72 Estimated GFR 70 L 79 L Random Glucose 86 84 Calcium 8.1 L 8.1 L Magnesium 1.4 L - Imaging Impressions Abdomen/Bladder Ultrasound 12/26/17 00:00 CONCLUSION: 1. Concern for left UPJ obstruction given the appearance of hydronephrosis. This does not appear to represent peripelvic cysts on ultrasound. Recommend confirmation with CT urogram. Assessment and Plan - Plan 72-year-old female with past medical history significant for HTN, GERD , fibromyalgia, polymyalgia rheumatica, chronic back pain, gastric ulcers, interstitial cystitis, frequent UTIs, and osteoporosis who presented to the emergency department under a Ramirez act. Patient apparently took extra dose of oral Dilaudid which he uses for chronic pain due to suicidal ideation. She has been admitted to medical psychiatry department and [facility] consulted for management of multiple medical issues. Suicidal ideation Intentional overdose -Patient took a total of 8 mg of Dilaudid and 2 pills of Lunesta. Patient remained hemodynamically stable as well as alert and oriented on admission. -Treatment plan per primary team Probable C. difficile colitis -Recently tested on 12/[address] of abdomen/pelvis completed was negative fro acute process. -Henny stated 12/18, unsure of recurrence, to complete 14 day course. - Continue Questran, diarrhea stopped, caution as pt with history of constipation and requiring self-disimpaction at home. -Continue probiotic, hold IVF for now as diarrhea has stopped. Antiemetics, encourage p.o. intake, if needed consult GI. Dysuria -Patient with a history of frequent UTIs, UA negative, short course of Pyridium. Hypokalemia, mild, acute Hypomagnesemia, acute -Likely secondary to diarrhea -Replace orally today - Replace mag IV due to potential of diarrhea Acute kidney injury -Likely secondary to dehydration from diarrhea -Improved, hold IVF, check BMP in 2 days Chronic back pain -Continue home dose prednisone, continue Dilaudid at 2 mg every 6 hours as needed - UA negative, renal US as noted below Renal calculi -Recent CT completed on 12/16 noted bilateral small nonobstructing renal calculi. 2 on the right measuring 3 mm with one measuring 3-4 mm in size, no urethral calculi. -Kidney/renal/bladder ultrasound done today noted multiple multiple peripelvic cyst as well as dilation of the left renal collecting system which extends into the adjacent calyces concerning for significant hydronephrosis. Concerns for UPJ obstruction. -Continue Flomax and Toradol. Urology consulted for further recommendations, appreciate assistance. - Allergy to Iodine, ? if alternative test can be done. - Ongoing CVA pain, increase Dilaudid dose to regular home dose of 4mg. DVT prophylaxisambulation Discussed Condition With: Patient and RN
[2017-12-27] MEDS: predniSONE 1 MG Tablet PO SCH (08:28)
[2017-12-27] MEDS: Mag Sulf 1 gm/100 ml Premix 100 ML IV.SIG SCH ×2 (10:52→12:02)
--- NOTE | 2017-12-27 17:47 | MR ---
EXAM DATE: 12/27/2017 5:32 PM EST AGE/SEX: 72 years / Female INDICATIONS: . Frequent UTI's CLINICAL DATA: This is the patient's initial encounter. Patient reports that signs and symptoms have been present for 3 days and indicates a pain score of 0/10. MEDICAL/SURGICAL HISTORY: Hypertension. Gastroesophageal reflux disease. Osteoporosis. Append ectomy. Tonsillectomy. COMPARISON: [facility], CT ABDOMEN & PELVIS W/O CONTRAST, 12/16/2017. [facility], US KIDNEY/RENAL/BLADDER, . [facility], CT ABDOMEN AND PELVIS W/O CONTRAST, 06/16/2017. [facility], CT ABDOMEN & PELVIS W/O CONTRAST, 04/21/2015. CT abdomen/pelvis 05/26/2011, [facility], US ABDOMEN COMPLETE, 04/20/2015. [facility], NM RENOGRAM W/ LA SIX, 02/19/2015. . TECHNIQUE: Multiplanar, multisequence images of the abdomen was performed without contrast. FINDINGS: No focal signal abnormalities within the liver or evidence of solid lesion. 3 mm cyst in the upper ri ght lobe. No filling defects seen within colon. Spleen and adrenal glands are remarkable. The pancrea s is unremarkable for noncontrast technique. Multiple prior imaging studies including CT, ultrasound, and Lasix renogram and demonstrated multiple and prominent parapelvic cysts, left greater than right. The overall appearance on the noncontrast M R is similar to these multiple prior imaging studies. No induration of the perinephric fat. The proxi mal ureters are normal in dimension. No dilated loops of small or large bowel. The abdominal aorta is normal in dimension. CONCLUSION: 1. Numerous bilateral parapelvic cysts, left greater than right, unchanged from numerous prior imagi ng studies dating back to 2011. Please note that on the prior CT scans have been performed without in travenous contrast and the only study which definitively confirms the absence of hydronephrosis is a Lasix renogram from 2016. Electronically signed by: Lucien Martinez MD 12/27/2017 5:46 PM EST
--- NOTE | 2017-12-27 17:59 | P.PNPSY ---
Subjective Remarks: Pt seen and discussed with staff. She has been compliant with care and medications. No behavioral problems on unit. Mood improving. No SI/HI Mental Status Examination Appearance: Appropriate Consciousness: Alert Orientation: x4 Motor Activity: Normal gait Speech: Unremarkable Language: Adequate Fund of Knowledge: Adequate Attention and Concentration: Adequate Memory: Unremarkable Mood: Appropriate Affect: Appropriate Thought Process & Associations: Intact, Linear, Tangential Thought Content: Appropriate Hallucination Type: None Delusion Type: None Suicidal Ideation: Yes (Denies at this time) Suicidal Plan: No Suicidal Intention: No Homicidal Ideation: No Homicidal Plan: No Homicidal Intention: No Insight: Adequate Judgment: Impulsive Assessment and Plan - Assessment (1) Major depressive disorder Code(s): F32.9 - Major depressive disorder, single episode, unspecified Status : Acute - Plan Plan: Patient improving. Continue current tx plan. Justification for Continued Inpatient Stay: risk of decompensation (1) Major depressive disorder Qualifiers: Major depression recurrence: single episode Active/Remission status: currently active Major depression episode severity: severe Psychotic features : without psychotic features Qualified Code(s): F32.2 - Major depressive disorder, single episode, severe without psychotic features
[2017-12-27] MEDS: traZODone 50 MG Tablet PO SCH (20:08)
[2017-12-28] MEDS: Ketorolac Inj 30 MG/ML (IVP) Vial IV.PUSH SCH ×4 (03:00→21:39)
[2017-12-28 08:02] LABS: Calcium 8.3 mg/dL (8.5-10.1); Carbon Dioxide 27.4 meq/L (21.0-32.0); Magnesium 2.3 mg/dL (1.5-2.5); Potassium 3.9 meq/L (3.5-5.1)
[2017-12-28] MEDS: predniSONE 5 MG Tablet PO SCH (08:22)
[2017-12-28] MEDS: predniSONE 1 MG Tablet PO SCH (08:23)
[2017-12-28] MEDS: Sertraline 50 MG Tablet PO SCH (08:24)
[2017-12-28] MEDS: Lisinopril 5 MG Tablet PO SCH (08:24)
--- NOTE | 2017-12-28 08:53 | P.PN ---
Subjective Interval history: Follow-up for diarrhea, nausea, back pain and suspected pyelonephritis. Patient seen and examined resting in bed with nurse at bedside. She denies any further nausea or vomiting, one BM this morning more formed. Denies any abdominal pain or discomfort. Continues to complain of bilateral back pain, she is voiding without dysuria. Denies fever, chill, cough or SOB. Physical Exam Vital signs: Vital Signs 12/27/17 14:39 12/28/17 05:12 Temperature 98.2 F 98.1 F Pulse Rate 81 86 Respiratory Rate 17 16 Blood Pressure 158/74 H 137/65 Pulse Oximetry 98 96 Intake & Output 12/27/17 12/28/17 12/28/17 18:59 06:59 18:59 Intake Total 1660 / 1660 480 / 480 Output Total Balance 1660 / 1660 479 / 479 Weight 61.2 kg Intake: IV 100 / 100 Magnesium Sulfate 1 gm/D5W 100 100 / 100 ml Premix 100 ML @ 100 mls/hr IV.SIG Q1H [facility] Rx#:[id number] Oral 1560 / 1560 480 / 480 Output: Urine Other: # Voids 4 Date of Last Bowel Movement 12/26/17 12/26/17 Narrative: GENERAL: Well-nourished, well-developed elderly female in no acute distress. SKIN: Warm and dry. HEAD: Atraumatic. Normocephalic. EYES: Pupils equal and round. No scleral icterus. No injection or drainage. ENT: No nasal bleeding or discharge. Mucous membranes pink and moist. NECK: Trachea midline. CARDIOVASCULAR: Regular rate and rhythm. RESPIRATORY: No accessory muscle use. Clear to auscultation. Breath sounds equal bilaterally. GASTROINTESTINAL: Abdomen soft, non-tender, nondistended. + Bowel sounds MUSCULOSKELETAL: Extremities without clubbing, cyanosis, or edema. No obvious deformities. Bilateral CVA tenderness. NEUROLOGICAL: Awake, alert, oriented x3. No obvious cranial nerve deficits. Motor grossly within normal limits. Normal speech. PSYCHIATRIC: Appropriate mood and affect; insight and judgment normal. Results - Labs CBC & Chem 7: 12/24/17 11:50 12/28/17 06:22 Laboratory Results - last 24 hr 12/28/17 06:22 Sodium 143 Potassium 3.9 Chloride 106 Carbon Dioxide 27.4 Anion Gap 10 BUN 9 Creatinine 0.88 Estimated GFR 63 L Random Glucose 84 Calcium 8.3 L Magnesium 2.3 D - Imaging Impressions Abdomen MRI 12/27/17 00:00 CONCLUSION: 1. Numerous bilateral parapelvic cysts, left greater than right, unchanged from numerous prior imaging studies dating back to 2012. Please note that on the prior CT scans have been performed without intravenous contrast and the only study which definitively confirms the absence of hydronephrosis is a Lasix renogram from 2016. Assessment and Plan - Plan 72-year-old female with past medical history significant for HTN, GERD , fibromyalgia, polymyalgia rheumatica, chronic back pain, gastric ulcers, interstitial cystitis, frequent UTIs, and osteoporosis who presented to the emergency department under a Ramirez act. Patient apparently took extra dose of oral Dilaudid which he uses for chronic pain due to suicidal ideation. She has been admitted to medical psychiatry department and [facility] consulted for management of multiple medical issues. Suicidal ideation Intentional overdose -Patient took a total of 8 mg of Dilaudid and 2 pills of Lunesta. Patient remained hemodynamically stable as well as alert and oriented on admission. -Treatment plan per primary team Probable C. difficile colitis -Recently tested on 12/[address] of abdomen/pelvis completed was negative fro acute process. -Henny stated 12/18, unsure of recurrence, to complete 14 day course. - Continue Questran, diarrhea stopped, caution as pt with history of constipation and requiring self-disimpaction at home. -Continue probiotic, hold IVF for now as diarrhea has stopped. No nausea today. Dysuria -Patient with a history of frequent UTIs, UA negative, short course of Pyridium. Hypokalemia, mild, acute Hypomagnesemia, acute -BMP with stable potassium and magnesium. Acute kidney injury -Likely secondary to dehydration from diarrhea -Resolved Chronic back pain -Continue home dose prednisone, continue Dilaudid at 2 mg every 6 hours as needed - UA negative, renal US as noted below Renal calculi -Recent CT completed on 12/16 noted bilateral small nonobstructing renal calculi. 2 on the right measuring 3 mm with one measuring 3-4 mm in size, no urethral calculi. -Kidney/renal/bladder ultrasound done today noted multiple multiple peripelvic cyst as well as dilation of the left renal collecting system which extends into the adjacent calyces concerning for significant hydronephrosis. Concerns for UPJ obstruction. -Continue Flomax and Toradol. Urology consulted for further recommendations, appreciate assistance. -MRI of abdomen with numerous bilateral benito-pelvic cyst, left greater than right unchanged compared to prior imaging dating back to 2011. -Ongoing back pain ? If this is once again related to possible pyelonephritis. DVT prophylaxisambulation Discussed Condition With: Patient and RN
--- NOTE | 2017-12-28 14:40 | P.TTN ---
- Patient Problems Problems: 1. Discharge planning 2. Medication compliance 3. Knowledge deficit 4. Lack of coping skills - Progress Toward Goals Provider Present: Dr. Betty Clayton Provider Input: Patient continues to remain guarded about suicide attempt. Stated she wants to learn improved coping skills. Nurse(s) Present: Janet Nurse Input: Patient still has diarrhea. Improving, positive attitude and wants to cope differently. Psychiatric Counselors Present: Other Psychiatric Therapist Input: Patient has been overwhelmed with her physical illnesses. Wants to learn how to cope better with depression symptomatology. Group Spec/RT/OT/CEDENO Present: Garth Erickson OT Group Spec/RT/OT/CEDENO Input: Unable to participate due to c-diff - Documentation Teaching Recipient: Patient
--- NOTE | 2017-12-28 16:52 | P.PNURO ---
Subjective Patient symptoms today: Pt was seen at bedside today. no f/c/n/v. still c/o left UQ/back/flank pain. normal labs MRI results reviewed and discussed with pt: 1. Numerous bilateral parapelvic cysts, left greater than right, unchanged from numerous prior imaging studies dating back to 2011. Please note that on the prior CT scans have been performed without intravenous contrast and the only study which definitively confirms the absence of hydronephrosis is a Lasix renogram from 2015. Objective Vital Signs: Vital Signs 12/28/17 05:12 12/28/17 12:46 Temperature 98.1 F Pulse Rate 86 Respiratory Rate 16 6 L Blood Pressure 137/65 Pulse Oximetry 96 Intake & Output 12/27/17 12/28/17 12/28/17 18:59 06:59 18:59 Intake Total 1660 / 1660 480 / 480 720 / 720 Output Total Balance 1660 / 1660 479 / 479 720 / 720 Weight 61.2 kg Intake: IV 100 / 100 Magnesium Sulfate 1 gm/D5W 100 100 / 100 ml Premix 100 ML @ 100 mls/hr IV.SIG Q1H MICKY Rx#:[id number] Oral 1560 / 1560 480 / 480 720 / 720 Output: Urine Other: # Voids 4 Date of Last Bowel Movement 12/26/17 12/26/17 12/26/17 Result Diagrams: 12/24/17 11:50 12/28/17 06:22 Other Results: NAD RRR Clear lungs Imaging: Impressions Abdomen MRI 12/27/17 00:00 CONCLUSION: 1. Numerous bilateral parapelvic cysts, left greater than right, unchanged from numerous prior imaging studies dating back to 2011. Please note that on the prior CT scans have been performed without intravenous contrast and the only study which definitively confirms the absence of hydronephrosis is a Lasix renogram from 2016. Medications and IVs: Active Medications Generic Name Dose Route Start Last Admin Trade Name Freq PRN Reason Stop Dose Admin Acetaminophen 650 mg 12/24/17 16:57 Tylenol PO Q4H PRN Pain 1-5 or Temp >101F Al Hydrox/Mg Hydrox/Simethicone 30 ml 12/24/17 16:57 Mag-Al Plus Susp Liq PO Q6H PRN DYSPEPSIA Al Hydroxide/Mg Hydroxide 30 ml 12/24/17 16:57 Milk Of Magnesia Liq PO Q12H PRN Mild Constipation Cholestyramine Resin 4 gm 12/26/17 12:00 12/28/17 08:23 Questran 4 Gm Pkt PO 4 gm DAILY MICKY Administration Hydromorphone HCl 4 mg 12/27/17 09:00 12/28/17 12:48 Dilaudid PO 4 mg Q6H PRN Administration PAIN 6-10 Lactated Ringer's 1,000 mls @ 100 mls/hr 12/25/17 09:30 12/27/17 02:17 Lr 1000 Ml Inj IV.CONT Not Given .Q10H MICKY Ketorolac Tromethamine 15 mg 12/27/17 09:00 12/28/17 10:40 Toradol Inj IV.PUSH 12/29/17 13:59 15 mg Q6H MICKY Administration Lisinopril 5 mg 12/25/17 09:00 12/28/17 08:24 Prinivil PO 5 mg DAILY MICKY Administration Lorazepam 0.5 mg 12/25/17 09:48 Ativan PO Q12H PRN ANXIETY Miscellaneous 1 each 12/25/17 09:54 Pill Splitter OTHER UNSCH PRN PILL SPLITTING Nitroglycerin 0.4 mg 12/25/17 08:54 Nitrostat Sl SL Q5M PRN CHEST PAIN Ondansetron HCl 4 mg 12/26/17 08:10 12/27/17 08:28 Zofran Inj IV.PUSH 4 mg Q6H PRN Administration NAUSEA OR VOMITING Pantoprazole Sodium 40 mg 12/25/17 09:00 12/28/17 10:41 Protonix PO 40 mg DAILY MICKY Administration Prednisone 5 mg 12/25/17 09:30 12/28/17 08:22 Deltasone PO 5 mg DAILY MICKY Administration Prednisone 2 mg 12/25/17 09:30 12/28/17 08:23 Deltasone PO 2 mg DAILY MICKY Administration Sertraline HCl 25 mg 12/25/17 10:00 12/28/17 08:24 Zoloft PO 25 mg DAILY MICKY Administration Tamsulosin HCl 0.4 mg 12/26/17 12:15 12/28/17 08:25 Flomax PO 0.4 mg DAILY MICKY Administration Trazodone HCl 25 mg 12/25/17 21:00 12/27/17 20:08 Desyrel PO 25 mg HS MICKY Administration Vancomycin HCl 125 mg 12/25/17 09:25 12/28/17 12:48 Vancomycin Po PO 12/31/17 21:00 125 mg QID MICKY Administration Assessment and Plan - Plan - MRI is normal c/w b/l parapelvic cysts - Renal scan is ordered to r/o any obstruction If normal scan no additional intervention needed, pain is not origin Urology remains available as needed Discussed Condition With: Dr Amezcua attending who agrees with this plan
--- NOTE | 2017-12-28 18:16 | P.PNPSY ---
Subjective Remarks: Patient seen for follow-up, chart reviewed. Discussion with nursing staff reported that patient pleasant denying any suicidal or homicidal ideations. Patient was found sitting in hospital bed A, cooperative. Patient stated weekend was long, stated being interested in individual therapy as part of her outpatient follow-up. Patient reports that she had been contemplating a wanted to focus on trying to think of the positive in her life such as looking forward to see her granddaughter and other family members. Patient states being visited by her daughter which was excised when she was happy about. She states her mood has been "good" as well as had a good visit by her . Patient states her mood has been improved, tolerating medications well. Review of Systems All other systems reviewed negative except as stated in HPI Mental Status Examination Appearance: Appropriate Consciousness: Alert Orientation: x4 Motor Activity: Normal gait Speech: Unremarkable Language: Adequate Fund of Knowledge: Adequate Attention and Concentration: Adequate Memory: Unremarkable Mood: Appropriate Affect: Appropriate Thought Process & Associations: Intact, Goal directed, Linear Thought Content: Appropriate Hallucination Type: None Delusion Type: None Suicidal Ideation: No Suicidal Plan: No Suicidal Intention: No Homicidal Ideation: No Homicidal Plan: No Homicidal Intention: No Insight: Adequate Judgment: Impulsive Assessment and Plan - Assessment (1) Major depressive disorder Code(s): F32.9 - Major depressive disorder, single episode, unspecified Status : Acute - Plan Plan: Patient currently with improved mood, reports minimal depressed mood noted to be future oriented goal directed, denies any suicidal ideations. We will continue current treatment. We will continue monitoring with behavior. We will await medical clearance for discharge. Discharge planning in progress. Justification for Continued Inpatient Stay: At risk of further decompensation at lower level care. (1) Major depressive disorder Qualifiers: Major depression recurrence: single episode Active/Remission status: currently active Major depression episode severity: severe Psychotic features : without psychotic features Qualified Code(s): F32.2 - Major depressive disorder, single episode, severe without psychotic features
[2017-12-28] MEDS: traZODone 50 MG Tablet PO SCH (21:00)
[2017-12-29] MEDS: Ketorolac Inj 30 MG/ML (IVP) Vial IV.PUSH SCH (03:02)
--- NOTE | 2017-12-29 08:37 | P.PN ---
Subjective Interval history: Follow-up visit for diarrhea, nausea and vomiting, back pain. Nurse does not report any acute events overnight with this morning, possible discharge today or tomorrow. Patient seen and examined resting in bed comfortably in no acute distress. Reports ongoing back pain however this is chronic. Denies any further diarrhea, stool more formed, occasional nausea without vomiting. Patient has been able to eat and drink. Denies any abdominal pain or discomfort , fevers, chills, cough, shortness of breath or chest pain. Patient is excited about getting discharged that she will be visiting with her daughter who will soon have to go [place]. She voices no acute concerns or complaints at the moment other than being discharged. Physical Exam Vital signs: Vital Signs 12/28/17 12:46 12/28/17 18:00 12/29/17 05:17 Temperature 98.7 F 98.7 F Pulse Rate 93 H 80 Respiratory Rate 6 L 16 17 Blood Pressure 118/56 L 128/60 Pulse Oximetry 96 95 Intake & Output 12/28/17 12/29/17 12/29/17 18:59 06:59 18:59 Intake Total 1200 / 1200 580 / 580 Balance 1200 / 1200 580 / 580 Intake: Oral 1200 / 1200 580 / 580 Other: # Voids 4 Date of Last Bowel Movement 12/26/17 12/26/17 Narrative: GENERAL: Well-nourished, well-developed elderly female in no acute distress. SKIN: Warm and dry. HEAD: Atraumatic. Normocephalic. EYES: Pupils equal and round. No scleral icterus. No injection or drainage. ENT: No nasal bleeding or discharge. Mucous membranes pink and moist. NECK: Trachea midline. CARDIOVASCULAR: Regular rate and rhythm. RESPIRATORY: No accessory muscle use. Clear to auscultation. Breath sounds equal bilaterally. GASTROINTESTINAL: Abdomen soft, non-tender, nondistended. + Bowel sounds MUSCULOSKELETAL: Extremities without clubbing, cyanosis, or edema. No obvious deformities. Bilateral CVA tenderness. NEUROLOGICAL: Awake, alert, oriented x3. No obvious cranial nerve deficits. Motor grossly within normal limits. Normal speech. PSYCHIATRIC: Appropriate mood and affect; insight and judgment normal. Results - Labs CBC & Chem 7: 12/24/17 11:50 12/28/17 06:22 Assessment and Plan - Plan 72-year-old female with past medical history significant for HTN, GERD , fibromyalgia, polymyalgia rheumatica, chronic back pain, gastric ulcers, interstitial cystitis, frequent UTIs, and osteoporosis who presented to the emergency department under a Ramirez act. Patient apparently took extra dose of oral Dilaudid which he uses for chronic pain due to suicidal ideation. She has been admitted to medical psychiatry department and [facility] consulted for management of multiple medical issues. Suicidal ideation Intentional overdose -Patient took a total of 8 mg of Dilaudid and 2 pills of Lunesta. Patient remained hemodynamically stable as well as alert and oriented on admission. -Treatment plan per primary team, possible discharge today. Probable C. difficile colitis -Recently tested on 12/[address] of abdomen/pelvis completed was negative fro acute process. -Fadumoo stated 12/18, unsure of recurrence, to complete 14 day course, prescription printed for completion of course. - Continue Questran, discussed with patient to discontinue if constipation occurs. No further diarrhea. -Occasional nausea without vomiting, prescription for Zofran provided. Hypokalemia, mild, acute Hypomagnesemia, acute -BMP with stable potassium and magnesium. 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 Renal calculi -Recent CT completed on 12/16 noted bilateral small nonobstructing renal calculi. 2 on the right measuring 3 mm with one measuring 3-4 mm in size, no urethral calculi. -Kidney/renal/bladder ultrasound done today noted multiple multiple peripelvic cyst as well as dilation of the left renal collecting system which extends into the adjacent calyces concerning for significant hydronephrosis. Concerns for UPJ obstruction. -Continue Flomax and Toradol. Urology consulted for further recommendations, appreciate assistance. -MRI of abdomen with numerous bilateral benito-pelvic cyst, left greater than right unchanged compared to prior imaging dating back to 2011. -Nuclear renal scan negative with no findings to suggest obstructive uropathy. -Per urology's last note if skin is normal pain is not in origin. Pain likely related to her chronic back pain. DVT prophylaxisambulation Patient medically clear for discharge, prescriptions printed and placed in chart. Discussed Condition With: Patient, nurse, Dr. Clayton.
[2017-12-29] MEDS: Sertraline 50 MG Tablet PO SCH (09:54)
[2017-12-29] MEDS: Lisinopril 5 MG Tablet PO SCH (09:54)
[2017-12-29] MEDS: predniSONE 1 MG Tablet PO SCH (09:55)
[2017-12-29] MEDS: predniSONE 5 MG Tablet PO SCH (09:56)
--- NOTE | 2017-12-29 10:34 | NM ---
EXAM DATE: 12/29/2017 9:58 AM EST AGE/SEX: 72 years / Female INDICATIONS: Obstruction. Upper back pain for one day. CLINICAL DATA: This is the patient's initial encounter. Patient reports that signs and symptoms have been present for 1 day and indicates a pain score of 5/10. MEDICAL/SURGICAL HISTORY: Gastroesophageal reflux disease. Hypertension. Appendectomy. Tonsil lectomy. COMPARISON: [facility] [place]/O [place]AST, 12/27/2017. . No external comparison. TECHNIQUE: Following the intravenous administration of radiotracer, dynamic imaging of flow and excre tory phases was performed. DOSE: 20.0 mCi Tc99m DTPA IV MEDICATION: 40 mg Lasix IV at 13 min. minutes. FINDINGS: Flow: There is symmetric arrival of bolus to both kidneys. There is homogeneous perfusion to both ki dneys. Differential Function: 52 % on Right. 48 % on Left. . Excretion: There is normal renal cortical transit time and normal rate of washout from the parenchym a. Enhanced excretion is noted following administration of Lasix. Central photopenic regions in both kidneys correspond to the patient's known peripelvic cysts. CONCLUSION: 1. Negative examination. 2. Normal Lasix renogram without findings to suggest obstructive uropathy. Electronically signed by: Armando Nunez MD 12/29/2017 10:33 AM EST
--- NOTE | 2017-12-29 12:47 | P.PNURO ---
Subjective Patient symptoms today: Renal scan reviewed. No obstruction seen. no additional intervention needed. other than causes of pt's pain needs to be r/o Objective Vital Signs: Vital Signs 12/28/17 12:46 12/28/17 18:00 12/29/17 05:17 Temperature 98.7 F 98.7 F Pulse Rate 93 H 80 Respiratory Rate 6 L 16 17 Blood Pressure 118/56 L 128/60 Pulse Oximetry 96 95 Intake & Output 12/28/17 12/29/17 12/29/17 18:59 06:59 18:59 Intake Total 1200 / 1200 580 / 580 Balance 1200 / 1200 580 / 580 Intake: Oral 1200 / 1200 580 / 580 Other: # Voids 4 Date of Last Bowel Movement 12/26/17 12/26/17 Result Diagrams: 12/24/17 11:50 12/28/17 06:22 Imaging: Impressions Renal Scan w/Medication NM 12/29/17 00:00 CONCLUSION: 1. Negative examination. 2. Normal Lasix renogram without findings to suggest obstructive uropathy. Medications and IVs: Active Medications Generic Name Dose Route Start Last Admin Trade Name Freq PRN Reason Stop Dose Admin Acetaminophen 650 mg 12/24/17 16:57 Tylenol PO Q4H PRN Pain 1-5 or Temp >101F Al Hydrox/Mg Hydrox/Simethicone 30 ml 12/24/17 16:57 Mag-Al Plus Susp Liq PO Q6H PRN DYSPEPSIA Al Hydroxide/Mg Hydroxide 30 ml 12/24/17 16:57 Milk Of Magnesia Liq PO Q12H PRN Mild Constipation Cholestyramine Resin 4 gm 12/26/17 12:00 12/29/17 10:36 Questran 4 Gm Pkt PO 4 gm DAILY MICKY Administration Hydromorphone HCl 4 mg 12/27/17 09:00 12/29/17 10:35 Dilaudid PO 4 mg Q6H PRN Administration PAIN 6-10 Lactated Ringer's 1,000 mls @ 100 mls/hr 12/25/17 09:30 12/27/17 02:17 Lr 1000 Ml Inj IV.CONT Not Given .Q10H MICKY Ketorolac Tromethamine 15 mg 12/27/17 09:00 12/29/17 03:02 Toradol Inj IV.PUSH 12/29/17 13:59 15 mg Q6H MICKY Administration Lisinopril 5 mg 12/25/17 09:00 12/29/17 09:54 Prinivil PO 5 mg DAILY MICKY Administration Lorazepam 0.5 mg 12/25/17 09:48 Ativan PO Q12H PRN ANXIETY Miscellaneous 1 each 12/25/17 09:54 Pill Splitter OTHER UNSCH PRN PILL SPLITTING Nitroglycerin 0.4 mg 12/25/17 08:54 Nitrostat Sl SL Q5M PRN CHEST PAIN Ondansetron HCl 4 mg 12/26/17 08:10 12/27/17 08:28 Zofran Inj IV.PUSH 4 mg Q6H PRN Administration NAUSEA OR VOMITING Pantoprazole Sodium 40 mg 12/25/17 09:00 12/29/17 09:55 Protonix PO 40 mg DAILY MICKY Administration Prednisone 5 mg 12/25/17 09:30 12/29/17 09:56 Deltasone PO 5 mg DAILY MICKY Administration Prednisone 2 mg 12/25/17 09:30 12/29/17 09:55 Deltasone PO 2 mg DAILY MICKY Administration Sertraline HCl 25 mg 12/25/17 10:00 12/29/17 09:54 Zoloft PO 25 mg DAILY MICKY Administration Tamsulosin HCl 0.4 mg 12/26/17 12:15 12/29/17 09:54 Flomax PO 0.4 mg DAILY MICKY Administration Trazodone HCl 25 mg 12/25/17 21:00 12/28/17 21:00 Desyrel PO 25 mg HS MICKY Administration Vancomycin HCl 125 mg 12/25/17 09:25 12/29/17 09:56 Vancomycin Po PO 12/31/17 21:00 125 mg QID MICKY Administration Assessment and Plan - Plan - MRI is normal c/w b/l parapelvic cysts - Renal scan showed no obstruction No additional intervention needed urology is signing off
--- NOTE | 2017-12-29 16:12 | P.DSPSY ---
Psychiatry Discharge Summary Inpatient Psychiatric care?: Yes Advance Directives: No Mental Health Advance Directive: No Health Care Proxy: No - Admission Admission Date: December 24, 2017 17:05 - Admission Diagnosis (1) Major depressive disorder Code(s): F32.9 - Major depressive disorder, single episode, unspecified Brief History: Patient is a 72-year-old woman, , domiciled with , retired, has 4 children, with a past psychiatric history of depression, denies previous psychiatric admissions denies any previous suicide attempt or self- injurious behavior, with no substance use history, with a past medical history significant for fibromyalgia, hypertension, GERD, chronic back pain, polymyalgia rheumatica, esophageal stricture, who was brought in by EMS under [facility] act after suicide attempt via overdose which patient was admitted to the inpatient psychiatry unit for further evaluation and management. Patient was found sitting in hospital chair noted B, cooperative, tearful at times. Patient states that she did not recall much details of her recent overdose initially denying having had a suicide attempt but later admitting that perhaps she might have intentionally overdosed. Currently she denies any suicide ideations stating "I have too much to live for". Patient patient recalls having taken too many pills "because I was in pain". Patient states that she wanted the pain go away and go to sleep. Patient states "I do not remember saying I wanted to ", and states that she does not know why she took so much. Patient reports having difficulty with sleep even prior to this event, reports her mood has been okay denying feeling depressed prior to the overdose but stating that she has been worried about her granddaughter going to [place] as she is in the . She also reports decreased appetite concentration and energy, denies feeling helpless or hopeless, but states having had losses such as her granddaughter having in 2008 and states that she misses her. Currently patient reports her mood is being "good" denying any suicide ideation at this time denying any perceptional services or delusions. Family psychiatric history: Denies Past psychiatric history: Previous psychiatric diagnosis of depression, denies any previous psychiatric admissions, suicide attempts of interest behavior. Patient denies any history of abuse. Patient reports having seen a psychiatrist 52 years ago and treated for depression at that time, denies any medication trials. Substance use history: Denies Past medical history: ibromyalgia, hypertension, GERD, chronic back pain, polymyalgia rheumatica, esophageal stricture Allergies: Multiple allergies see chart. Social history: , domiciled with , retired, has 4 children, has 4 grandchildren. Tobacco Use In Past 30 Days: No How Often Do You Have a Drink Containing Alcohol: Never Hospital Course: Patient is a 72-year-old woman, , domiciled with , retired, has 4 children, with a past psychiatric history of depression, denies previous psychiatric admissions denies any previous suicide attempt or self- injurious behavior, with no substance use history, with a past medical history significant for fibromyalgia, hypertension, GERD, chronic back pain, polymyalgia rheumatica, esophageal stricture, who was brought in by EMS under [facility] act after suicide attempt via overdose which patient was admitted to the inpatient psychiatry unit for further evaluation and management. Patient was admitted to a locked, inpatient psychiatric unit. Appropriate precautions were in place throughout patient's hospital stay. Patient was seen and examined on the unit by psychiatry. Psychotropic medications were adjusted. There was no evidence of any suicidality or homicidality on the inpatient unit. Patient's mood improved with the benefit of psychopharmacological treatment and had no behavioral disturbance since admission. Patient was noted to have reached stable mood, noted to participate and engage in treatment and interact with staff adequately. Patient noted to be future oriented with plans to continue treatment and outpatient follow-up appointments for continuity of care. Counselor has arranged discharge plan which patient return back to her home with . On the day of discharge: Patient seen and examined; chart reviewed. Case discussed with nurse and counselor. No behavioral issues overnight. On my examination today, the patient denies any suicidal homicidal ideation, intent or plan on direct questioning and contracts for safety. Patient denies any perceptional disturbances and no delusional material verbalized today. Patient denies any side effects from medication and has understanding of medication regimen and education. No physical complaints. Suicide and violence risk assessment on day of discharge both suggest lower imminent risk, and the patient's level of function is adequate for plan level of outpatient care. Patient has maximized benefit from this inpatient psychiatric hospital stay and will be discharged with discharge plan as arranged by counselor. Patient advised to return to psychiatric emergency room for any concerning psychiatric symptoms. Patient agrees with plan. - Discharge Discharge Date: 12/29/17 - Discharge Diagnosis (1) Major depressive disorder Code(s): F32.9 - Major depressive disorder, single episode, unspecified Status : Acute Discharge Disposition: Home - Discharge Instructions Discharge Diet: Heart Healthy Diet Activities You Can Perform: Weight Bearing As Tolerat - Discharge Time > 30 minutes Mental Status Examination Appearance: Appropriate Consciousness: Alert Orientation: x4 Motor Activity: Normal gait Speech: Unremarkable Language: Adequate Fund of Knowledge: Adequate Attention and Concentration: Adequate Memory: Unremarkable Mood: Appropriate Affect: Appropriate Thought Process & Associations: Intact, Goal directed, Linear Thought Content: Appropriate Hallucination Type: None Delusion Type: None Suicidal Ideation: No Suicidal Plan: No Suicidal Intention: No Homicidal Ideation: No Homicidal Plan: No Homicidal Intention: No Insight: Adequate Judgment: Adequate Discharge/Advance Care Plan - Results Vital Signs: Last Vital Signs Temp 98.7 F 12/29/17 05:17 Pulse 80 12/29/17 05:17 Resp 17 12/29/17 05:17 BP 128/60 12/29/17 05:17 Pulse Ox 95 12/29/17 05:17 Lab Results: Laboratory Results Hemoglobin A1c 5.2 % (4.3-6.0) 12/25/17 07:17 Triglycerides 98 mg/dL (42-150) 12/25/17 07:17 Cholesterol 187 mg/dL (120-200) 12/25/17 07:17 LDL Cholesterol, Calc 114 mg/dL (0-99) H 12/25/17 07:17 HDL Cholesterol 53.8 mg/dL (40.0-60.0) 12/25/17 07:17 Urine Culture Comments Culture not ind 12/25/17 13:47 Summary of Procedures: none Imaging: ITS Impressions Chest X-Ray 12/24/17 11:42 CONCLUSION: No acute cardiopulmonary disease identified. Abdomen/Bladder Ultrasound 12/26/17 00:00 CONCLUSION: 1. Concern for left UPJ obstruction given the appearance of hydronephrosis. This does not appear to represent peripelvic cysts on ultrasound. Recommend confirmation with CT urogram. Abdomen MRI 12/27/17 00:00 CONCLUSION: 1. Numerous bilateral parapelvic cysts, left greater than right, unchanged from numerous prior imaging studies dating back to 2011. Please note that on the prior CT scans have been performed without intravenous contrast and the only study which definitively confirms the absence of hydronephrosis is a Lasix renogram from 2016. Renal Scan w/Medication NM 12/29/17 00:00 CONCLUSION: 1. Negative examination. 2. Normal Lasix renogram without findings to suggest obstructive uropathy. Pending Results: None - Medications Number of antipsychotic medications at discharge: 0 - Discharge Care Plan Goals to Promote Your Health: * To prevent worsening of your condition and complications * To maintain your health at the optimal level Directions to Meet Your Goals: Take your medications as prescribed Follow your dietary instruction Follow activity as directed Keep your appointments as scheduled Take your immunizations and boosters as scheduled If your symptoms worsen call your PCP, if no PCP go to Urgent Care Center or Emergency Room For 01/09 questions related to your inpatient stay or results of tests pending at discharge, please contact Dr. Ramiro Clayton MD at Smoking is Dangerous to Your Health. Avoid second hand smoking (1) Major depressive disorder Qualifiers: Major depression recurrence: single episode Active/Remission status: currently active Major depression episode severity: severe Psychotic features : without psychotic features Qualified Code(s): F32.2 - Major depressive disorder, single episode, severe without psychotic features (1) Major depressive disorder Qualifiers: Major depression recurrence: single episode Active/Remission status: currently active Major depression episode severity: severe Psychotic features : without psychotic features Qualified Code(s): F32.2 - Major depressive disorder, single episode, severe without psychotic features
== END 2017-12-29 12:15 | disposition home or self-care (01) ==
LOC: NEPC 11:05 → NEDA 17:05 → H4EA 17:47
PROVIDERS: ADMIT Student in an Organized Health Care Education/Training Program; ATTEND Student in an Organized Health Care Education/Training Program